=== PATIENT | male | born 1940 | race Caucasian/White ===

== ENCOUNTER 2017-05-16 00:09 | Inpatient (IN) | payer OTHER ==
[~2017-05-16] VITALS: Ht 190.5 cm; Wt 95.7 kg
--- NOTE | 2017-05-16 00:30 | NUR ---
TRIAGE: PATIENT TO ER FROM HOME REPORTING "I GOT WOKEN UP FROM A SOUND SLEEP TO PD AND EMS IN [place], I HAD LABS DONE AT [facility] TODAY AND DR. MANDUJANO TOLD ME MY LIVER AND MAYBE MY POTASSIUM OR SODIUM OR SOMETHING WAS OFF AND I NEEDED TO GO TO AN ER STAT." PATIENT DENIES ANY COMPLAINTS, DOES NOT HAVE ANY C/O CP/SOB/ABD PAIN/N/V/D.
--- NOTE | 2017-05-16 00:31 | NUR ---
SUZI SENT TO LAB FROM [facility].
[2017-05-16 00:37] LABS: ABSOLUTE BASOPHIL COUNT 0 /CUMM (0.0-0.2); ABSOLUTE EOSINOPHIL COUNT 0.4 /CUMM (0.0-0.7); ABSOLUTE GRANULOCYTE CT 4.1 /CUMM (1.4-6.5); ABSOLUTE LYMPH COUNT 1.5 /CUMM (1.2-3.4); ABSOLUTE MONOCYTE COUNT 0.8 /CUMM (0.10-0.60); BASOPHIL % 0.3 % (0.0-2.0); EOSINOPHIL % 5.7 % (0-5); GRANULOCYTE % 60.6 % (42.2-75.2); MEAN CORPUSCULAR HGB 29.5 PG (27.0-31.0); MEAN CORPUSCULAR HGB CONC 33.8 G/DL (33.0-37.0); MEAN PLATELET VOLUME 7.6 FL (7.4-10.4); PLATELET COUNT 181 /CUMM (130-400); RBC DISTRIBUTION WIDTH 12.9 % (11.5-14.5); RED BLOOD CELL CT 3.67 /CUMM (4.70-6.10); WHITE BLOOD CELL COUNT 6.7 /CUMM (4.8-10.8)
--- NOTE | 2017-05-16 00:55 | NUR ---
CRITICAL TEST RESULTS [id number] JUAN REBOLLAR 76 M TESTS AND RESULTS: K 6.0 Results received and read back by: ERICA WALDRON Results received date and time: 05/16/1754 The following provider was notified of the results, and read the results back: DR ALCANTAR Notified date and time: 05/16/17 at 0055
--- NOTE | 2017-05-16 01:30 | NUR ---
MEDICATED WITH SODIUM BICARB,INSULIN,DEXTROSE,AND CALCIUM GLUCONATE
--- NOTE | 2017-05-16 01:50 | ED GENERAL ADULT ---
History of Present Illness General Chief Complaint: General Adult Stated Complaint: SENT IN BY PMD FOR ABNORMAL BLOOD WORK "STAT" Source: patient, old records, PCP Exam Limitations: no limitations Vital Signs & Intake/Output Vital Signs & Intake/Output Vital Signs Date Time Temp Pulse Resp B/P B/P Pulse O2 O2 Flow FiO2 Mean Ox Delivery Rate 05/164 97.0 58 20 165/71 100 Room Air 05/16 0101 98.7 53 18 183/74 99 Room Air Allergies Coded Allergies: NO KNOWN ALLERGIES (05/16/17) Reconcile Medications Amlodipine Besylate (Norvasc) 10 MG TABLET 1 TAB PO DAILY HTN (Reported) Atorvastatin Calcium 20 MG TABLET 1 TAB PO DAILY CHOLESTROL (Reported) Lisinopril 10 MG TABLET 1 TAB PO DAILY HTN (Reported) Metoprolol Succinate 25 MG TAB 1 TAB PO DAILY HTN (Reported) Triage Note: TRIAGE: PATIENT TO ER FROM HOME REPORTING "I GOT WOKEN UP FROM A SOUND SLEEP TO PD AND EMS IN [place], I HAD LABS DONE AT [facility] TODAY AND DR. MANDUJANO TOLD ME MY LIVER AND MAYBE MY POTASSIUM OR SODIUM OR SOMETHING WAS OFF AND I NEEDED TO GO TO AN ER STAT." PATIENT DENIES ANY COMPLAINTS, DOES NOT HAVE ANY C/O CP/SOB/ABD PAIN/N/V/D. Triage Nurses Notes Reviewed? yes Onset: Just prior to arrival Duration: hour(s):, constant, continues in ED Timing: recent history Severity: mild No Modifying Factors: none HPI: Prior to admission patient called for routine labs with elevated potassium and creatinine. He complains of frequent urination. He denies fever chills nausea vomiting diarrhea abdominal pain chest pain shortness of breath headache dysuria rash bleeding. Past History Medical History Any Pertinent Medical History? see below for history Cardiovascular: hypertension Renal: benign prost hyperplasia Tetanus Vaccine: 06/06/12 Surgical History Surgical History: non-contributory Psychosocial History What is your primary language Tajik Family History Hx Contributory? No Review of Systems Review of Systems Constitutional: Reports: no symptoms. EENTM: Reports: no symptoms. Respiratory: Reports: no symptoms. Cardiovascular: Reports: no symptoms. GI: Reports: no symptoms. Genitourinary: Reports: see HPI, frequency. Musculoskeletal: Reports: no symptoms. Skin: Reports: no symptoms. Neurological/Psychological: Reports: no symptoms. Hematologic/Endocrine: Reports: no symptoms. Immunologic/Allergic: Reports: no symptoms. All Other Systems: Reviewed and Negative Physical Exam Physical Exam General Appearance: well developed/nourished, alert, awake, comfortable Head: atraumatic, normal appearance Eyes: Bilateral: normal appearance, PERRL, EOMI. Ears, Nose, Throat: normal pharynx, normal ENT inspection Neck: normal inspection, supple, full range of motion, no midline tenderness Respiratory: normal breath sounds, chest non-tender, no respiratory distress, quiet respiration, lungs clear Cardiovascular: regular rate/rhythm, normal peripheral pulses, norml femoral pulses equa Peripheral Pulses: 4+ carotid (R), 4+ carotid (L) Gastrointestinal: normal bowel sounds, soft, non-tender, no organomegaly Back: normal inspection, normal range of motion Extremities: normal inspection, normal capillary refill, normal range of motion, no edema Neurologic/Psych: no motor/sensory deficits, awake, alert, oriented x 3, normal gait, normal mood/affect, 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 Skin: intact, normal color, warm/dry Lymphatic: no anterior cervical harmeet Core Measures ACS in differential dx? No CVA/TIA Diagnosis: No Severe Sepsis Present: No Septic Shock Present: No Progress Differential Diagnoses I considered the following diagnoses in my evaluation of the patient: .prerenal azotemia acute renal failure Plan of Care: Orders Procedure Date/time Status CBC WITHOUT DIFFERENTIAL 05/17 0600 Active BASIC ELECTROLYTES PLUS BUN&CR 05/17 0500 Active Heart Healthy Diet 05/16 B Active EKG 05/16 0600 Active Pathway - chart 05/16 0431 Active House Staff 05/16 0431 Active Code Status 05/16 0431 Active Patient Data 05/16 0245 Active OXYGEN SETUP (GEN) 05/16 0113 Active Saline Lock 05/16 0113 Active Admit to inpatient 05/16 0113 Active Vital Signs 05/16 0113 Active Activity/Ambulation 05/16 0113 Active Code Status 05/16 0113 Complete Brooks, Insertion/Removal/Asses 05/16 0105 Active CULTURE,URINE 05/16 0105 Active URINALYSIS 05/16 0105 Active EKG 05/16 0105 Active Intake & Output 05/16 0030 Active MAGNESIUM 05/16 0023 Complete COMPREHENSIVE METABOLIC PANEL 06/16 0023 Complete CBC WITHOUT DIFFERENTIAL 05/16 23 Complete VTE Mechanical Prophylaxis 05/16 UNK Active Intake & Output 05/16 UNK Active Activity/Ambulation 05/16 UNK Active Current Medications Sig/Elizabeth Start time Last Medication Dose Stop Time Status Admin Amlodipine Besylate 10 MG DAILY 05/16 1000 UNVr (Norvasc) Atorvastatin Calcium 20 MG DAILY 05/16 1000 UNVr (Lipitor) Metoprolol Tartrate 25 MG DAILY 05/16 1000 UNVr (Lopressor) Tamsulosin HCl 0.4 MG DAILY 05/16 1000 UNVr (Flomax) Bisacodyl 5 MG ONE ONE 05/16 430 UNVr (Dulcolax) 05/16 431 Sodium Chloride 1,000 ML .[id number] 05/16 430 UNVr (Normal Saline 0.9%) Sodium Polystyrene 60 ML ONCE ONE 05/16 430 UNVr Sulfonate 05/16 431 (Kayexalate) Laboratory Tests 05/16/17 0025: Anion Gap 12, Estimated GFR 20 L, BUN/Creatinine Ratio 17.4, Glucose 88, Calcium 9.3, Magnesium 1.6, Total Bilirubin 0.3, AST 16 L, ALT 25, Alkaline Phosphatase 75, Total Protein 6.8, Albumin 4.1, Globulin 2.7, Albumin/Globulin Ratio 1.5, CBC w Diff NO MAN DIFF REQ, RBC 3.67 L, MCV 87.0, MCH 29.5, RDW 12.9 , MPV 7.6, Gran % 60.6, Lymphocytes % 22.2, Monocytes % 11.2 H, Eosinophils % 5.7 H, Basophils % 0.3, Absolute Granulocytes 4.1, Absolute Lymphocytes 1.5, Absolute Monocytes 0.8 H, Absolute Eosinophils 0.4, Absolute Basophils 0, PUBS MCHC 33.8 Microbiology 05/16 0105 URINE ROUT: Urine Culture - ORD Diagnostic Imaging: Viewed by Me: CT Scan. Discussed w/RAD: CT Scan. Radiology Impression: 1. Markedly distended urinary bladder with severe bilateral hydroureteronephrosis. Appearance is most suggestive of bladder outlet obstruction in the setting of an enlarged prostate gland. 2. Bilateral renal calculi as described above. 3. Colonic diverticulosis. Initial ED EKG: normal axis, normal intervals, normal p-waves, normal QRS complex, normal sinus rhythm, peaked t waves Rhythm Strip: normal sinus rhythm Departure Departure Disposition: STILL A PATIENT Condition: Stable Clinical Impression Primary Impression: Bladder outlet obstruction Secondary Impressions: Acute hyperkalemia, Acute renal failure Referrals: COLLINS BERRY,ASIA Morse (PCP/Family) Departure Forms: Customer Survey General Discharge Information Admission Note Spoke With: LYNETTE SALCEDO MD Documentation of Exam: Documentation of any treatments & extenuating circumstances including Concerns Regarding Discharge (functional status, medication knowledge or non-compliance, living conditions, etc.) that warrant an admission rather than observation: Urology evaluation serial lab exam cardiac monitoring medication adjustment renal evaluation continuing care discharge planning Critical Care Note Critical Care Note Critical Care Time: non-applicable
--- NOTE | 2017-05-16 02:00 | NUR ---
UNABLE TO PASS MACKEY WITH REGULAR AND COUDE CATHETERS DR ALCANTAR NOTIFIED
--- NOTE | 2017-05-16 02:30 | CT SCAN REPORT ---
EXAMINATION: CT ABDOMEN AND PELVIS WITHOUT CONTRAST CLINICAL INFORMATION: Acute renal failure COMPARISON: None TECHNIQUE: Multidetector volumetric imaging was performed from the superior aspect of the liver through the pubic symphysis. Sagittal and coronal reformatted images were obtained on the technologist's workstation. DLP: 770.51 mGy-cm FINDINGS: LUNG BASES: The visualized lung bases are unremarkable. LIVER, GALLBLADDER, AND BILIARY TREE: The liver is normal in size, shape, and attenuation. No focal hepatic lesion or biliary ductal dilatation is present. The gallbladder is contracted and not well evaluated. PANCREAS: Unremarkable. SPLEEN: Unremarkable. ADRENAL GLANDS: Unremarkable. KIDNEYS AND URETERS: There is severe, symmetric bilateral hydroureteronephrosis extending to the ureterovesicular junctions. There are right upper and lower pole renal calculi measuring up to 12 mm in length. There is a left lower pole renal calculus measuring 8 mm in length. No ureteral calculi are seen. BLADDER: Markedly distended. A few small diverticula are suspected. Nodularity along the inferior aspect of the bladder is suspected to reflect part of the enlarged prostate gland. GASTROINTESTINAL TRACT: Colonic diverticulosis is noted. The small and large bowel are otherwise unremarkable without evidence of obstruction or pericolonic inflammatory change. The appendix is unremarkable. No free fluid or free air is seen. ABDOMINAL WALL: No significant hernia is appreciated. LYMPH NODES: Normal. VASCULAR: There is atherosclerotic calcification along the aorta. PELVIC VISCERA: The prostate gland is enlarged, measuring 6.3 cm in transverse diameter. OSSEOUS STRUCTURES: Degenerative changes are noted in the spine. IMPRESSION: 1. Markedly distended urinary bladder with severe bilateral hydroureteronephrosis. Appearance is most suggestive of bladder outlet obstruction in the setting of an enlarged prostate gland. 2. Bilateral renal calculi as described above. 3. Colonic diverticulosis.
--- NOTE | 2017-05-16 03:04 | History & Physical ---
SUSIE BERRY,[facility] 05/16/17 0304: General Information and HPI MD Statement: I have seen and personally examined JUAN REBOLLAR and documented this H&P. The patient is a 76 year old M who presented with a patient stated chief complaint of [elevated potassium]. Source of Information: patient Exam Limitations: no limitations History of Present Illness: Patient is a 76-year-old male with PMH of BPH, HTN, HLD, thoracic aortic aneurysm, who is brought to the ED by the EMS as the patient was found to have abnormal lab work. Patient reports that he went to [employer] yesterday for a routine work-up before his appointment with PCP. Results showed elevated K and increased Cr, which was copied to his PCP. He tried to call the patient to infirm him of abnormal test results, the patient did not reply so the PCP sent an ambulance to take the patient to the ED. Patient denies any chest pain, palpitation, dizziness, SOB. Reports feeling tired recently with some soreness of the muscles in the upper extremity. Has had good appetite and drinks enough water. Exercises 3 miles a day. Denies constipation, diarrhea, abdominal pain. Reports 2-3 seconds of straining before urination, denies changes in the color or odor of the urine, denies frequency or urgency. Denies flank pain. Reports eating one banana daily. Patient has had a history of BPH and was seeing Dr. Romero in the past, currently not on any medications; also did biopsy which was negative. The last time he checked his kidney function he was told that it was impaired. Allergies/Medications Allergies: Coded Allergies: NO KNOWN ALLERGIES (05/16/17) Past History Medical History Cardiovascular: aortic aneurysm, hypertension, hyperlipidemia CLIENT SUPPORT REPRESENTATIVE/Reproductive: BPH, kidney stone 15 years ago Tetanus Vaccine: 06/06/12 Surgical History Surgical History: non-contributory Past Family/Social History Family History Relations & Conditions if any FATHER FH: heart disease Psychosocial History Smoking Status: Never Smoked ETOH Use: occasional use Illicit Drug Use: denies illicit drug use Functional Ability ADLs Independent: dressing, eating, toileting, bathing. Ambulation: independent Review of Systems Review of Systems Constitutional: Reports: weakness. Denies: chills, fever. EENTM: Reports: blurred vision. Cardiovascular: Denies: chest pain, palpitations, peripheral edema, syncope. Respiratory: Denies: cough, short of breath. GI: Denies: abdominal pain, changes in stool. Genitourinary: Reports: hesitation. Denies: dysuria, hematuria, urgency. Musculoskeletal: Reports: no symptoms. Skin: Reports: no symptoms. Neurological/Psychological: Reports: no symptoms. Hematologic/Endocrine: Reports: no symptoms. Exam & Diagnostic Data Last 24 Hrs of Vital Signs/I&O Vital Signs Date Time Temp Pulse Resp B/P B/P Pulse O2 O2 Flow FiO2 Mean Ox Delivery Rate 05/16 0224 97.0 58 20 165/71 100 Room Air 05/16 0101 98.7 53 18 183/74 99 Room Air Intake & Output 05/16 0800 05/16 0000 05/15 1600 Intake Total Output Total Balance Patient 95.254 kg Weight Weight Reported by Patient Measurement Method Physical Exam General Appearance Alert, Oriented X3, Cooperative, No Acute Distress Skin No Significant Lesion Skin Temp/Moisture Exam: Warm/Dry Sepsis Skin Exam (color): Normal for Ethnicity HEENT Atraumatic, EOMI, Mucous Membr. moist/pink, pupils round and reactive to light Neck Supple Cardiovascular Normal S1, Normal S2, No Murmurs, S3 sound heard on aortic and pulmonic areas Lungs Clear to Auscultation, Normal Air Movement Abdomen Soft, No Tenderness Neurological Normal Speech, Strength at 5/5 X4 Ext, Normal Tone, Sensation Intact, Cranial Nerves 3-12 NL Extremities No Edema Vascular Pulses Symmetrical Last 24 Hrs of Labs/Mal: Laboratory Tests 05/16/17 0025: Anion Gap 12, Estimated GFR 20 L, BUN/Creatinine Ratio 17.4, Glucose 88, Calcium 9.3, Magnesium 1.6, Total Bilirubin 0.3, AST 16 L, ALT 25, Alkaline Phosphatase 75, Total Protein 6.8, Albumin 4.1, Globulin 2.7, Albumin/Globulin Ratio 1.5, CBC w Diff NO MAN DIFF REQ, RBC 3.67 L, MCV 87.0, MCH 29.5, RDW 12.9 , MPV 7.6, Gran % 60.6, Lymphocytes % 22.2, Monocytes % 11.2 H, Eosinophils % 5.7 H, Basophils % 0.3, Absolute Granulocytes 4.1, Absolute Lymphocytes 1.5, Absolute Monocytes 0.8 H, Absolute Eosinophils 0.4, Absolute Basophils 0, PUBS MCHC 33.8 Microbiology 05/16 105 URINE ROUT: Urine Culture - ORD Diagnostic Data EKG Results rate 52, sinus rhythm, peaked T waves in V2-V6, WI 224. Other Results SERVICE DATE: 05/16/17 EXAM TYPE: CAT - CT ABD & PELVIS W/O IV CONTRAS EXAMINATION: CT ABDOMEN AND PELVIS WITHOUT CONTRAST CLINICAL INFORMATION: Acute renal failure COMPARISON: None TECHNIQUE: Multidetector volumetric imaging was performed from the superior aspect of the liver through the pubic symphysis. Sagittal and coronal reformatted images were obtained on the technologist's workstation. DLP: 770.51 mGy-cm FINDINGS: LUNG BASES: The visualized lung bases are unremarkable. LIVER, GALLBLADDER, AND BILIARY TREE: The liver is normal in size, shape, and attenuation. No focal hepatic lesion or biliary ductal dilatation is present. The gallbladder is contracted and not well evaluated. PANCREAS: Unremarkable. SPLEEN: Unremarkable. ADRENAL GLANDS: Unremarkable. KIDNEYS AND URETERS: There is severe, symmetric bilateral hydroureteronephrosis extending to the ureterovesicular junctions. There are right upper and lower pole renal calculi measuring up to 12 mm in length. There is a left lower pole renal calculus measuring 8 mm in length. No ureteral calculi are seen. BLADDER: Markedly distended. A few small diverticula are suspected. Nodularity along the inferior aspect of the bladder is suspected to reflect part of the enlarged prostate gland. GASTROINTESTINAL TRACT: Colonic diverticulosis is noted. The small and large bowel are otherwise unremarkable without evidence of obstruction or pericolonic inflammatory change. The appendix is unremarkable. No free fluid or free air is seen. ABDOMINAL WALL: No significant hernia is appreciated. LYMPH NODES: Normal. VASCULAR: There is atherosclerotic calcification along the aorta. PELVIC VISCERA: The prostate gland is enlarged, measuring 6.3 cm in transverse diameter. OSSEOUS STRUCTURES: Degenerative changes are noted in the spine. IMPRESSION: 1. Markedly distended urinary bladder with severe bilateral hydroureteronephrosis. Appearance is most suggestive of bladder outlet obstruction in the setting of an enlarged prostate gland. 2. Bilateral renal calculi as described above. 3. Colonic diverticulosis. 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 Problem list and plan: 1. hyperkalemia with EKG changes * Kayexalate and dulcolax and repeat K and EKG in 4 hours 2. DAKOTA, bilateral hydronephrosis most likely due to obstructive uropathy due to BPH and bilateral renal calculi * Urology consult in am * Consider starting the patient on flomax * repeat BEP in am * hold lisinopril, give norvasc if BP elevated 3. history of thoracic aortic aneurysm * asymptomatic, follow up with Dr. Dykes and gets a CT scan done every year for follow up 4. Chronic anemia * stable, added iron, ferritin, TIBC, reticulocyte count DVT px with SC heparin Heart healthy diet FC As Ranked By This Provider Problem List: 1. Acute hyperkalemia 2. Acute renal failure 3. Bladder outlet obstruction Core Measures/Miscellaneous Acute Coronary Syndrome ACS Diagnosis: No Cerebrovascular Accident CVA/TIA Diagnosis: No Congestive Heart Failure CHF Diagnosis: No VTE (View Protocol) VTE Risk Factors: Acute medical illness, Age > 40 No Mech VTE prophylaxis d/t: VTE low risk, No contraindications No VTE Pharm Prophylaxis d/t: VTE low risk, No contraindications VTE Diagnosis: No VTE Type: NONE VTE Confirmed by (Test): NONE Sepsis (View Protocol) Severe Sepsis Present: No Septic Shock Septic Shock Present: No Miscellaneous Documentation Attending Case Discussed With: LYNETTE SALCEDO MD Primary Care Physician: COLLINS BERRY,ASIA Morse Patient sees these Specialists Dr. Jania Romero Level of Patient Care: Telemetry TATI NAM 05/16/17 0456: Resident Review Statement Resident Statement: examined this patient, discussed with international trade manager, agreed with international trade manager, reviewed images, amended to note Other Findings: 76 year old gentleman with history of hypertension, hyperlipidemia, BPH previously seen by Dr. Romero (urologist) presented to [facility] ED after being sent by his primary care physician for abnormal lab work. The lab work revealed hyperkalemia and kidney injury. This likely was due to enlarged prostate gland and backup of urine leading to severe bilateral hydronephrosis, bladder outlet obstruction as suggested by the CAT scan of the abdomen. Patient admitted to urinary frequency, hesitancy, but reported normal urinary stream and no dribbling. EKG showed prolonged WI interval and peak T waves. Patient denied any chest pain, pressure or palpitations. Admit to telemetry. Insulin and calcium gluconate given in the ED. Give Kayexalate and Ducolax and repeat potassium and EKG. Start patient on tamsulosin. Urology consult for bladder outlet obstruction. Full code. Heparin for DVT prophylaxis. Heart healthy diet. LYNETTE SALCEDO 05/16/17 0515: Attending MD Review Statement Attending Statement Attending MD Statement: examined this patient, discuss w/resident/PA/BLASTING MINER, agreed w/resident/PA/BLASTING MINER, reviewed EMR data (avail), reviewed images, amended to note Attending Assessment/Plan: CC: high potassium PMH: HTN, HLD, thoracic aortic aneurysm Patient underwent routine blood work outpatient before his PCP visit and was found to have elevated potassium and creatinine. His PCP tried to reach him through phone but patient was not lifting the phone so he sent EMS to pick him up. Patient was sound asleep at that time. Patient does not have any acute complaints, no chest pain shortness of breath abdominal pain, nausea, vomiting. Patient had been having some urinary problems since last year, was prescribed Flomax which did not help him much so he stopped it. He undergoes routine CT scans for thoracic aortic aneurysm. Upon further questioning patient endorses more sleepiness and tiredness in last 1 month that was gradual in onset. He denies any dyspnea on exertion, exertional chest pain,, palpitations or presyncope. He also denies any urinary burning, pain, flank pain. Vitals: Unremarkable except blood pressure 183/74 at arrival On exam: A O 3, cooperative, no acute distress, neck supple, JVD normal, no lymphadenopathy, mucosa moist, no focal neurological deficit, +1 edema around ankle, no obvious skin rashes or inflammation CVS: S1-S2, RRR, ?diastolic murmur in Aortic area. RS: Clear to auscultate bilaterally. Abdomen: Soft, NT, ND, no suprapubic tenderness, no CVA tenderness, bowel sounds present. Labs: Hemoglobin 10.8, MCV 87, potassium 6.0, bicarbonate 20, creatinine 3.1, BUN 54, LFT unremarkable CT abdomen and pelvis: 1. Markedly distended urinary bladder with severe bilateral hydroureteronephrosis. Appearance is most suggestive of bladder outlet obstruction in the setting of an enlarged prostate gland. 2. Bilateral renal calculi as described above. 3. Colonic diverticulosis. EKG: First-degree heart block with tall T waves A and P Patient was brought in ER with abnormal labs, elevated creatinine and potassium. Patient appeared to be asymptomatic but Upon further questioning he endorses lethargy more sleepiness since last 1 month, and intermittent urinary leaking. He has EKG changes related to hyperkalemia and obvious urinary retention with bilateral hydronephrosis suggestive of bladder outlet obstruct with BPH. It should be noted that patient had CT chest in December 2016 at that time he had mild hydronephrosis: Thus appearing gradually progressed over time. Placement of Massey catheter was tried twice in ER which was unsuccessful, patient is urinating in small quantities. + Hyperkalemia + Obstructive uropathy + Bilateral hydronephrosis + Acute kidney injury + Mild metabolic acidosis + Anemia + Bladder outlet obstruction secondary to BPH - Admit to telemetry for EKG changes related to hyperkalemia with obstructive uropathy - Strict I's and O's - Kayexalate and Dulcolax by mouth - Repeat potassium and EKG in 4 hours from previous - Repeat insulin and calcium gluconate if required - Consult urology in a.m. for difficult placement of Massey with bladder outlet obstruction - Consult nephrology - Hold her lisinopril, continue rest of his home medications including amlodipine, atorvastatin, metoprolol - Adequate pain control - Iron studies, reticulocyte count - DVT prophylaxis with heparin MARLEEN PENA MD 05/17/17 0026: General Information and HPI Allergies/Medications Home Med list Amlodipine Besylate (Norvasc) 10 MG TABLET 1 TAB PO DAILY HTN (Reported) Atorvastatin Calcium 20 MG TABLET 1 TAB PO DAILY CHOLESTROL (Reported) Finasteride 5 MG TABLET 1 TAB PO DAILY PROSTATE Lisinopril 10 MG TABLET 1 TAB PO DAILY HTN (Reported) Metoprolol Succ XL (Toprol XL) 25 MG TAB 0.5 TAB PO DAILY HEART RATE CONTROL Metoprolol Succinate 25 MG TAB 1 TAB PO DAILY HTN (Reported) Tamsulosin HCl (Flomax) 0.4 MG CAP.ER.24H 1 TAB PO DAILY PROSTATE Addendum Addendum The patient was also seen today and massey placed by Dr. Romero. K and Cr decreasing. Had 4 L diuresis today and concern regarding post obstructive diuresis. Will follow output and match input with IV fluids.
--- NOTE | 2017-05-16 03:23 | NUR ---
VOIDED 360 ML BLADDER SCAN OVER 1000ML
--- NOTE | 2017-05-16 03:30 | NUR ---
DR ALCANTAR AWARE OF BLADDER SCAN WILL GET UROLOGY CONSULT IN AM
--- NOTE | 2017-05-16 04:14 | NUR ---
HOUSESTAFF WITH PT
[2017-05-16] MEDS ORDERED: LISINOPRIL10 M1 PO (04:31)
[2017-05-16] MEDS ORDERED: NORVASC10 M1 PO (04:32)
[2017-05-16] MEDS ORDERED: ATORVASTATIN CA20 M1 PO (04:32)
[2017-05-16] MEDS ORDERED: METOPROLOL SUCC25 M1 PO (04:33)
--- NOTE | 2017-05-16 05:08 | NUR ---
URINE SPECIMEN OBTAINED AND SENT TO LAB.
--- NOTE | 2017-05-16 05:17 | NUR ---
KAYEXALATE GIVEN N/S HUNG AT 75ML/HR
--- NOTE | 2017-05-16 05:17 | Admission Certification ---
Admission Certification Certification Statement - As attending physician, I certify that at the time of - admission, based on clinical presentation, severity of - symptoms, need for further diagnostic testing and - therapeutic interventions, and risk of adverse outcomes - without in-hospital treatment, in my clinical assessment, - this patient requires an acute hospital stay for a minimum - of two nights or longer. I have also considered psychsocial - factors such as support system, advanced age, financial - issues, cognitive issues, and failed out-patient treatments, - past re-admission history, safety of patient, and lack of - compliance as applicable. Specific rationale supporting this admission is: Obstructive uropathy with DAKOTA , hyperkalemia, with EKG changes
--- NOTE | 2017-05-16 05:34 | NUR ---
SMALL AMOUHT URINE ABLE TO BE OBTAINED DURING [facility] CATH INSERTION, SPECIMEN (TRIO) OBTAINED AND SENT TO LAB. PATIENT THEN NOTED W/ NO ADDITIONAL URINE OUTPUT FROM [facility]. [facility] CATH REMOVED D/T NO URINE OUTPUT W/ BLADDER SCAN REFLECTING 961ML URINE REMAINING IN BLADDER. NOTED W/ DROP OF BLOOD AT TIP OF CATH ON REMOVAL. PATIENT DENIES ANY URGE TO VOID. NO BLEEDING NOTED FROM [facility].
[2017-05-16 05:36] LABS: ABSOLUTE BASOPHIL COUNT 0 /CUMM (0.0-0.2); ABSOLUTE EOSINOPHIL COUNT 0.1 /CUMM (0.0-0.7); ABSOLUTE LYMPH COUNT 0.7 /CUMM (1.2-3.4); ABSOLUTE MONOCYTE COUNT 0.7 /CUMM (0.10-0.60); BASOPHIL % 0 % (0.0-2.0); EOSINOPHIL % 0.4 % (0-5); GRANULOCYTE % 89.3 % (42.2-75.2); HEMATOCRIT 31.8 % (42-52); MEAN CORPUSCULAR HGB 29.6 PG (27.0-31.0); MEAN CORPUSCULAR HGB CONC 33.4 G/DL (33.0-37.0); MEAN CORPUSCULAR VOLUME 88.6 FL (80.0-94.0); MEAN PLATELET VOLUME 7.7 FL (7.4-10.4); PLATELET COUNT 161 /CUMM (130-400); RBC DISTRIBUTION WIDTH 13.1 % (11.5-14.5); RED BLOOD CELL CT 3.59 /CUMM (4.70-6.10)
[2017-05-16 05:42] LABS: WHITE BLOOD CELL COUNT 13.5 /CUMM (4.8-10.8)
--- NOTE | 2017-05-16 05:43 | NUR ---
REPORT CALLED TO SHARAD RN ON ICU (PATIENT GOING TO ICU OVERFLOW).
--- NOTE | 2017-05-16 05:53 | NUR ---
PATIENT MEDICATED W/ SC HEPARIN PER EMAR. TOLERATED WELL.
--- NOTE | 2017-05-16 05:56 | NUR ---
CRITICAL TEST RESULTS [id number] JUAN REBOLLAR 76 M TESTS AND RESULTS: POTASSIUM 6.3 Results received and read back by: TAB MARI Results received date and time: 05/16/17 0556 The following provider was notified of the results, and read the results back: HOUSE STAFF PAGED Notified date and time: 05/16/17 at 0528
--- NOTE | 2017-05-16 07:02 | NUR ---
ADMITTED A 76 YEAR OLD MALE WHO WAS BROGHT IN AFTER POLICE AND AN AMBULANCE CAME TO HIS HOUSE AT [place] BECAUSE [place]. THEY WERE SENT BY HID PRIMARY PHYSICIAN AFTER HE FOUND OUT ABOUT HIS LAB RESULTS. HE ALSO HAD SOME BLADDER OBSTRUCTION. HE WAS GIVEN KAYEXALATE, NA BICARB D50, CALCIUM AND INSULIN WAS ALSO GIVEN. BLADDER SCAN SHOWED >1000, HE URINATED 360 . BLADDER SCAN 961. HE HAS A H/O BPH. REPEAT K 6.3, REPORTED TO JUSTEN HUERTA. PT VOIDED X 2 SINCE ARRIVAL IN ICU.
[2017-05-16 08:00] VITALS: BP 142/70
--- NOTE | 2017-05-16 14:18 | Cons- Urology ---
General Information and HPI Consulting Request Date of Consult: 05/16/17 Requested By: LYNETTE SALCEDO MD Reason for Consult: urinary retention: ARF: bilateral renal stones. Source of Information: patient, old records Exam Limitations: no limitations History of Present Illness: 76 year old with BPH: admitted for hyperkalemia. reports worsening BPH for months. 1800cc drained with intermittent cath-unable to place massey. Allergies/Medications Allergies: Coded Allergies: NO KNOWN ALLERGIES (05/16/17) Home Med List: Amlodipine Besylate (Norvasc) 10 MG TABLET 1 TAB PO DAILY HTN (Reported) Atorvastatin Calcium 20 MG TABLET 1 TAB PO DAILY CHOLESTROL (Reported) Lisinopril 10 MG TABLET 1 TAB PO DAILY HTN (Reported) Metoprolol Succinate 25 MG TAB 1 TAB PO DAILY HTN (Reported) Current Medications: Current Medications Sig/Elizabeth Start time Last Medication Dose Route Stop Time Status Admin Albuterol Sulfate 2 PUF Q4 05/16 0645 DC INH Amlodipine Besylate 10 MG DAILY 05/16 1000 AC 05/16 PO 0907 Atorvastatin Calcium 20 MG DAILY 05/16 1000 AC 05/16 PO 0907 Bisacodyl 5 MG ONE ONE 05/16 0430 DC 05/16 PO 05/16 0431 0544 Calcium Gluconate 0 .STK-MED ONE 05/16 0137 DC IV Calcium Gluconate 1 GM ONCE ONE 05/16 011 DC 05/16 Sodium Chloride 100 ML IV 05/16 0214 0130 Dextrose 25 GM ONCE ONE 05/16 0645 DC 05/16 IV 05/16 0646 0716 Dextrose 0 .STK-MED ONE 05/16 0138 DC IV Dextrose 25 GM ONCE ONE 05/16 0115 DC 05/16 IV 05/16 0116 0130 Finasteride 5 MG DAILY 05/16 1000 AC 05/16 PO 0907 Heparin Sodium 5,000 UNIT Q8 05/16 0600 AC 05/16 (Porcine) SC 0553 Heparin Sodium 0 .STK-MED ONE 05/16 0519 DC (Porcine) .ROUTE Insulin Human Regular 6 UNITS ONCE ONE 05/16 0645 DC 05/16 SC 05/16 0646 0716 Insulin Human Regular 10 UNITS ONCE ONE 05/16 0115 DC 05/16 IV 05/16 0116 0130 Magnesium Oxide 400 MG BID 05/16 1000 AC 05/16 PO 0907 Metoprolol Succinate 25 MG DAILY 05/16 1000 AC 05/16 PO 0907 Sodium Bicarbonate 0 .STK-MED ONE 05/16 0138 DC IV Sodium Bicarbonate 50 MEQ ONCE ONE 05/16 0115 DC 05/16 IV 05/16 0116 0130 Sodium Chloride 1,000 ML .[id number] 05/16 0430 DC 05/16 IV 0515 Sodium Polystyrene 0 .STK-MED ONE 05/16 0519 DC Sulfonate .ROUTE Sodium Polystyrene 0 .STK-MED ONE 05/16 0509 DC Sulfonate .ROUTE Sodium Polystyrene 60 ML ONCE ONE 05/16 0430 DC 05/16 Sulfonate PO 05/16 0431 0515 Tamsulosin HCl 0.4 MG DAILY 05/16 1000 AC 05/16 PO 0907 Past History Medical History Blood Transfusion Hx: No Neurological: NONE EENT: NONE Cardiovascular: aortic aneurysm, hypertension, hyperlipidemia Respiratory: NONE Gastrointestinal: NONE Hepatic: NONE Renal: benign prost hyperplasia, nephrolithiasis Musculoskeletal: NONE Psychiatric: NONE Endocrine: NONE Blood Disorders: NONE Cancer(s): NONE [employer]/Reproductive: BPH, kidney stone 15 years ago Surgical History Pertinent Surgical History: non-contributory Family History Relations & Conditions If Any: FATHER FH: heart disease Psychosocial History Where Do You Live? Home Smoking Status: Never Smoked ETOH Use: occasional use Illicit Drug Use: denies illicit drug use Functional Ability ADLs Independent: dressing, eating, toileting, bathing. Ambulation: independent Employment History Employment: Unemployed Retired? yes Review of Systems Review of Systems Constitutional: Denies: no symptoms. EENTM: Denies: no symptoms. Cardiovascular: Denies: no symptoms. Respiratory: Denies: no symptoms. GI: Denies: no symptoms. Genitourinary: Reports: frequency (retentioin), hesitation. Musculoskeletal: Denies: no symptoms. Skin: Denies: no symptoms. Exam & Diagnostic Data Vital Signs and I&O Vital Signs Date Time Temp Pulse Resp B/P B/P Pulse O2 O2 Flow FiO2 Mean Ox Delivery Rate 05/16 0907 53 142/70 05/16 0907 53 142/70 05/16 0907 53 142/70 05/16 0800 98.3 57 18 142/70 97 Room Air 05/16 0655 Room Air 05/16 0544 96.1 50 18 175/77 100 Room Air 05/16 0300 100 Room Air 05/16 0224 97.0 58 20 165/71 100 Room Air 05/16 0101 98.7 53 18 183/74 99 Room Air Intake & Output 05/16 1600 05/16 0800 05/16 0000 05/15 1600 05/15 0800 05/15 0000 Intake Total 320 Output Total 2100 Balance -1780 Intake, Oral 320 Number 1 1 Bowel Movements Output, Urine 2100 Patient 211 lb Weight Weight Bed scale Measurement Method Physical Exam General Appearance: well developed/nourished, no apparent distress, alert, awake Head: atraumatic Eyes: Bilateral: normal appearance. Neck: normal inspection Respiratory: normal breath sounds Cardiovascular: regular rate/rhythm Gastrointestinal: normal bowel sounds Back: no vertebral tenderness Extremities: normal inspection Skin: intact Reproductive: Normal male genitalia Last 24 Hours of Labs: Laboratory Tests 05/16 05/16 1155 0517 Chemistry Sodium (137 - 145 mmol/L) 143 140 Potassium (3.5 - 5.1 mmol/L) 5.5 H 6.3 *H Chloride (98 - 107 mmol/L) 111 H 111 H Carbon Dioxide (22 - 30 mmol/L) 21 L 18 L Anion Gap (5 - 16) 12 11 BUN (9 - 20 mg/dL) 46 H 53 H Creatinine (0.7 - 1.2 mg/dL) 2.7 H 2.9 H Estimated GFR (>60 ml/min) 23 L 21 L BUN/Creatinine Ratio (7 - 25 %) 17.0 18.3 Iron (49 - 181 ug/dL) 61 TIBC (261 - 462 ug/dL) 283 Ferritin (17.9 - 464 ng/mL) 189.0 Hematology CBC w Diff NO MAN DIFF REQ WBC (4.8 - 10.8 /CUMM) 13.5 H RBC (4.70 - 6.10 /CUMM) 3.59 L Hgb (14.0 - 18.0 G/DL) 10.6 L Hct (42 - 52 %) 31.8 L MCV (80.0 - 94.0 FL) 88.6 MCH (27.0 - 31.0 PG) 29.6 RDW (11.5 - 14.5 %) 13.1 Plt Count (130 - 400 /CUMM) 161 MPV (7.4 - 10.4 FL) 7.7 Gran % (42.2 - 75.2 %) 89.3 H Lymphocytes % (20.5 - 51.1 %) 4.9 L Monocytes % (1.7 - 9.3 %) 5.4 Eosinophils % (0 - 5 %) 0.4 Basophils % (0.0 - 2.0 %) 0 L Absolute Granulocytes (1.4 - 6.5 /CUMM) 12.0 H Absolute Lymphocytes (1.2 - 3.4 /CUMM) 0.7 L Absolute Monocytes (0.10 - 0.60 /CUMM) 0.7 H Absolute Eosinophils (0.0 - 0.7 /CUMM) 0.1 Absolute Basophils (0.0 - 0.2 /CUMM) 0 PUBS MCHC (33.0 - 37.0 G/DL) 33.4 Retic Count (0.5 - 2.0 %) 1.08 16 05/16 0504 0025 Chemistry Sodium (137 - 145 mmol/L) 141 Potassium (3.5 - 5.1 mmol/L) 6.0 *H Chloride (98 - 107 mmol/L) 109 H Carbon Dioxide (22 - 30 mmol/L) 20 L Anion Gap (5 - 16) 12 BUN (9 - 20 mg/dL) 54 H Creatinine (0.7 - 1.2 mg/dL) 3.1 H Estimated GFR (>60 ml/min) 20 L BUN/Creatinine Ratio (7 - 25 %) 17.4 Glucose (65 - 99 mg/dL) 88 Calcium (8.4 - 10.2 mg/dL) 9.3 Magnesium (1.6 - 2.3 mg/dL) 1.6 Total Bilirubin (0.2 - 1.3 mg/dL) 0.3 AST (17 - 59 U/L) 16 L ALT (21 - 72 U/L) 25 Alkaline Phosphatase (< 127 U/L) 75 Total Protein (6.3 - 8.2 g/dL) 6.8 Albumin (3.5 - 5.0 g/dL) 4.1 Globulin (1.9 - 4.2 gm/dL) 2.7 Albumin/Globulin Ratio (1.1 - 2.2 %) 1.5 Hematology CBC w Diff NO MAN DIFF REQ WBC (4.8 - 10.8 /CUMM) 6.7 RBC (4.70 - 6.10 /CUMM) 3.67 L Hgb (14.0 - 18.0 G/DL) 10.8 L Hct (42 - 52 %) 32.0 L MCV (80.0 - 94.0 FL) 87.0 MCH (27.0 - 31.0 PG) 29.5 RDW (11.5 - 14.5 %) 12.9 Plt Count (130 - 400 /CUMM) 181 MPV (7.4 - 10.4 FL) 7.6 Gran % (42.2 - 75.2 %) 60.6 Lymphocytes % (20.5 - 51.1 %) 22.2 Monocytes % (1.7 - 9.3 %) 11.2 H Eosinophils % (0 - 5 %) 5.7 H Basophils % (0.0 - 2.0 %) 0.3 Absolute Granulocytes (1.4 - 6.5 /CUMM) 4.1 Absolute Lymphocytes (1.2 - 3.4 /CUMM) 1.5 Absolute Monocytes (0.10 - 0.60 /CUMM) 0.8 H Absolute Eosinophils (0.0 - 0.7 /CUMM) 0.4 Absolute Basophils (0.0 - 0.2 /CUMM) 0 PUBS MCHC (33.0 - 37.0 G/DL) 33.8 Urines Urine Color (YEL,AMB,STR) YEL Urine Clarity (CLEAR) CLEAR Urine pH (5.0 - 8.0) 6.0 Ur Specific [place] (1.001 - 1.035) 1.010 Urine Protein (NEG,<30 MG/DL) NEG Urine Ketones (NEG) NEG Urine Nitrite (NEG) NEG Urine Bilirubin (NEG) NEG Urine Urobilinogen (0.1 - 1.0 EU/dl) 0.2 Ur Leukocyte Esterase (NEG) NEG Ur Microscopic EXAM NOT REQUIRED Urine Hemoglobin (NEG) NEG Urine Glucose (N MG/DL) NEG Imaging Results: PATIENT: JUAN REBOLLAR PRESENT AGE: 76 PATIENT ACCOUNT NO: [id number] : 40 LOCATION: [facility] ORDERING PHYSICIAN: PERLA ALCANTAR MD SERVICE DATE: 05/16/17 EXAM TYPE: CAT - CT ABD & PELVIS W/O IV CONTRAS EXAMINATION: CT ABDOMEN AND PELVIS WITHOUT CONTRAST CLINICAL INFORMATION: Acute renal failure COMPARISON: None TECHNIQUE: Multidetector volumetric imaging was performed from the superior aspect of the liver through the pubic symphysis. Sagittal and coronal reformatted images were obtained on the technologist's workstation. DLP: 770.51 mGy-cm FINDINGS: LUNG BASES: The visualized lung bases are unremarkable. LIVER, GALLBLADDER, AND BILIARY TREE: The liver is normal in size, shape, and attenuation. No focal hepatic lesion or biliary ductal dilatation is present. The gallbladder is contracted and not well evaluated. PANCREAS: Unremarkable. SPLEEN: Unremarkable. ADRENAL GLANDS: Unremarkable. KIDNEYS AND URETERS: There is severe, symmetric bilateral hydroureteronephrosis extending to the ureterovesicular junctions. There are right upper and lower pole renal calculi measuring up to 12 mm in length. There is a left lower pole renal calculus measuring 8 mm in length. No ureteral calculi are seen. BLADDER: Markedly distended. A few small diverticula are suspected. Nodularity along the inferior aspect of the bladder is suspected to reflect part of the enlarged prostate gland. GASTROINTESTINAL TRACT: Colonic diverticulosis is noted. The small and large bowel are otherwise unremarkable without evidence of obstruction or pericolonic inflammatory change. The appendix is unremarkable. No free fluid or free air is seen. ABDOMINAL WALL: No significant hernia is appreciated. LYMPH NODES: Normal. VASCULAR: There is atherosclerotic calcification along the aorta. PELVIC VISCERA: The prostate gland is enlarged, measuring 6.3 cm in transverse diameter. OSSEOUS STRUCTURES: Degenerative changes are noted in the spine. IMPRESSION: 1. Markedly distended urinary bladder with severe bilateral hydroureteronephrosis. Appearance is most suggestive of bladder outlet obstruction in the setting of an enlarged prostate gland. 2. Bilateral renal calculi as described above. 3. Colonic diverticulosis. Assessment/Plan Assessment/Plan urianry retention: massey placed with >1000cc drained: start flomax and proscar: f/u in office at 9am on sunday 05/20 if pt discharged with leg bag over weekend. Copies To: RADHA WASHBURN MD Consult Acknowledgment - Thank you for your consult request. Attending MD Review Statement Attending Statement Attending Statement: examined this patient, discuss w/resident/PA/TIPPLE REPAIRER Attending Assessment/Plan: retention: massey placed: pt on flomax and proscar: if discharged over weekend- send home with massey and f/u in office on friday05/19/17 at 9am
[2017-05-16 16:00] VITALS: BP 128/64
--- NOTE | 2017-05-16 19:00 | NUR ---
7AM-7PM SHIFT NOTE- RECEIVED PT @ 0700-A&OX3, LUNGS CTAB ON RA 97%, SINUS BRADYCARDIA/BORDERLINE 1ST DEGREE HB 57-62 ON HELPER COORDINATOR. MANUAL BP 142/70. PO MEDS GIVEN PER EMAR. DENIES CHEST PAIN. INDEPENDENT TO TOILET W/MIN ASSISTANCE FOR IV POLE. MOVED BOWELS IN TOILET X2. URINATED 100ML X2 VOIDS IN URINAL. BLADDER SCAN SHOWED >999 @ 0800. ATTEMPTED MACKEY INSERTION W/12 BHUTANESE & 12 BHUTANESE CAUDE CATHETERS & UNABLE TO ADVANCE BOTH W/ATTEMPT ABORTED. DR ORO & DR COTTON NOTIFIED. UROLOGY DR WASHBURN NOTIFIED. PT REMAINS ASYMPTOMATIC W/NO C/O PAIN OR DISCOMFORT, HOWEVER ABDOMEN APPEARS DISTENDED. NO PAIN WITH PALPATION OF BLADDER. ALPS INTACT TO BLE. SKIN INTACT. NS @ 75ML/HR DISCONTINUED AT THIS TIME PER DR ORO UNTIL MACKEY ESTABLISHED OR PT VOIDS ADEQUATE AMOUNT. @0900-PT RECEIVED PO MEDS INCLUDING NEW ORDERS PROSCAR & FLOMAX PER EMAR. @1000-PT VOIDED 125ML OR URINE IN URINAL ONLY. AT THIS TIME ATTEMPTED STRAIGHT CATHETER INSERTION WITH SUCCESS & WITHOUT DIFFICULTY. OBTAINED 1875ML OF CLEAR YELLOW URINE. DR ORO NOTIFIED. @1400-DR WASHBURN IN TO ASSESS PT. HE PLACED A 16 BHUTANESE CAUDE CATHETER WITH 1 LITER CLEAR YELLOW URINE WITH A FEW SMALL CLOTS NOTED IN TUBING. PT ENCOURAGED TO DRINK WATER. PER DR WASHBURN-MACKEY TO REMAIN IN PLACE UNTIL FRIDAY WHETHER IN OR OUTPATIENT, IF HE IS DISCHARGED HOME-CHANGE TO A LEG BAG. HE IS TO FOLLOWUP IN HIS OFFICE FRIDAY AT [address] WASHBURN. @1800-URINE IN MACKEY NOTED TO BE HEMATURIC WITH STRINGY CLOTS & PINK IN COLOR & 850ML OBTAINED. DR ORO NOTIFIED & NS @ 75ML/HR REORDERED TO START @ THIS TIME & REPEAT BEP FOR 1999. PATIENT CONTINUES TO DENY PAIN OR DISCOMFORT. REPORT GIVEN TO ONCOMING NURSE.
[2017-05-16] MEDS ORDERED: FLOMAX0.4 M1 PO (20:14)
[2017-05-16] MEDS ORDERED: TOPROL XL25 M1 PO (20:14)
[2017-05-16] MEDS ORDERED: FINASTERIDE5 M1 PO (20:14)
--- NOTE | 2017-05-16 20:29 | Patient Discharge Instructions ---
Discharge Instructions General Discharge Information You were seen/treated for: hyperkalemia Special Instructions: please follow up with your PCP with in a week of discharge. Please follow up with urologist / Dr Romero in office at 9am on sunday 05/20 after discharge. Please recheck your blood work for kidney next week as provided. please continue to take the new medications as prescribed. Diet Continue normal diet: No Recommended Diet: low pottasium diet Acute Coronary Syndrome Inclusion Criteria At DC or during hospital stay patient has or had the following: ACS DIAGNOSIS No Discharge Core Measures Meds if any: Prescribed or Continued at Discharge Meds if any: NOT Prescribed or Continued at Discharge Congestive Heart Failure Inclusion Criteria At DC or during hospital stay patient has or had the following: CHF DIAGNOSIS No Discharge Core Measures Meds if any: Prescribed or Continued at Discharge Meds if any: NOT Prescribed or Continued at Discharge Cerebrovascular accident Inclusion Criteria At DC or during hospital stay patient has or had the following: CVA/TIA Diagnosis No Discharge Core Measures Meds if any: Prescribed or Continued at Discharge Meds if any: NOT Prescribed or Continued at Discharge Venous thromboembolism Inclusion Criteria VTE Diagnosis No VTE Type NONE VTE Confirmed by (Test) NONE Discharge Core Measures - Per Current guidelines, there needs to be overlap - treatment for the first 5 days of Warfarin therapy. - If discharged on Warfarin prior to 5 days of - overlap therapy, the patient will need to be - assessed for post discharge needs including - *Post discharge parental anticoagulation - *Warfarin and/or parental anticoagulation education - *Follow up date to check INR post discharge At least 5 days overlap therapy as Inpatient No Meds if any: Prescribed or Continued at Discharge Note: Overlap Therapy is Warfarin and Anticoagulant Meds if any: NOT Prescribed or Continued at Discharge
[2017-05-16 23:00] VITALS: BP 144/92
--- NOTE | 2017-05-17 01:59 | NUR ---
PATIENT IS A/O X 3, MOVES ALL THE EXTREMITIES, FOLLOWS COMMANDS, ABLE TO WALK TO THE BATHROOM, DENIES ANY PAIN. AFEBRILE, VITALS SIGNS ARE STABLE, HR AT 60'S, SYSTOLIC BP IS AT 130'S TO 140'S, RR ON 20'S WITH GOOD OXYGEN SATURATION. BREATHING SPONTANEOUSLY ON R/A, LUNGS IS CLEAR. ABDOMEN IS SOFT, GOOD BOWEL SOUNDS, WENT TO THE BATHROOM FOR BOWEL MOVEMENT, LIGHT YELLOW LOSOE STOOL NOTED MODERATE AMOUNT. PATIENT RECEIVED WITH CAUDE CATHETER, DRAINING WITH BLOODY URINE OUTPUT( HEMATURIA ). SKIN IS INTACT. AT 1930. MD ON DUTY INFORMED THAT URINE OUTPUT REMAIN HEMATURIC, MD CAME INTO THE BEDSIDE AND SEEN THE PATIENT. NO FURTHER ORDER.
[2017-05-17 05:28] LABS: ABSOLUTE BASOPHIL COUNT 0 /CUMM (0.0-0.2); ABSOLUTE EOSINOPHIL COUNT 0.3 /CUMM (0.0-0.7); ABSOLUTE GRANULOCYTE CT 5.2 /CUMM (1.4-6.5); ABSOLUTE LYMPH COUNT 1.3 /CUMM (1.2-3.4); ABSOLUTE MONOCYTE COUNT 0.7 /CUMM (0.10-0.60); BASOPHIL % 0.4 % (0.0-2.0); EOSINOPHIL % 4.6 % (0-5); GRANULOCYTE % 68.7 % (42.2-75.2); HEMATOCRIT 31.7 % (42-52); MEAN CORPUSCULAR HGB 29.8 PG (27.0-31.0); MEAN CORPUSCULAR HGB CONC 33.7 G/DL (33.0-37.0); MEAN CORPUSCULAR VOLUME 88.4 FL (80.0-94.0); PLATELET COUNT 160 /CUMM (130-400); RBC DISTRIBUTION WIDTH 13.5 % (11.5-14.5); RED BLOOD CELL CT 3.59 /CUMM (4.70-6.10); WHITE BLOOD CELL COUNT 7.6 /CUMM (4.8-10.8)
--- NOTE | 2017-05-17 06:42 | NUR ---
ROUTINE MORNING LAB RESULT RELAYED TO MD ON DUTY. POTASSIUM REMAIN AT 5.5 AND LATEST MAGNESIUM IS 1.4 ORAL KAYAXELATE 60M ML GIVEN EMAR. MAGNESIUM IS REPLETED WITH 2 GRAMS MG IV, FISRT BAG IS IN PROGRESS.
[2017-05-17 07:00] VITALS: BP 134/59
[2017-05-17 08:00] VITALS: BP 140/62
--- NOTE | 2017-05-17 10:03 | NUR ---
PER DR. YURY FRYE TO GIVE METOPROLO TAMSULIN AND AMLODIPINE WITH HEART RATE OF 53
--- NOTE | 2017-05-17 10:27 | PN- Housestaff ---
JEVON COTTON 05/17/17 1026: Subjective Follow-up For: DAKOTA urinary obstruction due to BPH Subjective: I have seen and examined the patient, he is feeling better today. still bloody urine but clearing out. Vs are stable Review of Systems Constitutional: Reports: see HPI. Objective Last 24 Hrs of Vital Signs/I&O Vital Signs Date Time Temp Pulse Resp B/P B/P Pulse O2 O2 Flow FiO2 Mean Ox Delivery Rate 05/17 1007 53 140/62 05/17 1007 53 140/62 05/17 1007 53 140/62 05/17 0700 97.5 72 24 134/59 97 Nasal 2.0L Cannula 05/17 0000 95 Room Air 05/16 2300 98.3 65 22 144/92 95 Room Air 05/16 1600 98.8 57 18 128/64 97 Room Air Intake & Output 05/17 1600 05/17 0800 05/17 0000 Intake Total 1580 1895 Output Total 1150 2210 Balance 430 -315 Intake, IV 620 575 Intake, Oral 960 1320 Number 2 Bowel Movements Output, Urine 1150 2210 Physical Exam General Appearance: Alert, Oriented X3, Cooperative, No Acute Distress Cardiovascular: Regular Rate, Normal S1, Normal S2 Lungs: Clear to Auscultation, Normal Air Movement Abdomen: Normal Bowel Sounds, Soft, No Tenderness Extremities: No Clubbing, No Edema Current Medications: Current Medications Sig/Elizabeth Start time Last Medication Dose Route Stop Time Status Admin Amlodipine Besylate 10 MG DAILY 05/16 1000 AC 05/17 PO 1007 Atorvastatin Calcium 20 MG DAILY 05/16 1000 AC 05/17 PO 1007 Finasteride 5 MG DAILY 05/16 1000 AC 05/17 PO 1006 Heparin Sodium 5,000 UNIT Q8 05/16 0600 DC 05/16 (Porcine) SC 1418 Magnesium Oxide 400 MG BID 05/17 1000 CAN PO 05/18 2201 Magnesium Oxide 400 MG BID 05/16 1000 AC 05/17 PO 1007 Magnesium Sulfate 1 GM Q2H 05/17 0630 DC 05/17 Dextrose/Water 100 ML IV 05/17 1029 0840 Metoprolol Succinate 12.5 MG DAILY 05/17 1000 AC 05/17 PO 1007 Metoprolol Succinate 25 MG DAILY 05/16 1000 DC 05/16 PO 0907 Sodium Chloride 1,000 ML .[id number] 05/16 1800 AC 05/17 IV 0625 Sodium Polystyrene 60 ML ONCE ONE 05/17 0615 DC 05/17 Sulfonate PO 05/17 0616 0625 Sodium Polystyrene 60 ML ONCE ONE 05/16 2045 DC 05/16 Sulfonate PO 05/16 Tamsulosin HCl 0.4 MG DAILY 05/16 1000 AC 05/17 PO 1007 Last 24 Hrs of Lab/Mal Results Last 24 Hrs of Labs/Mics: Laboratory Tests 05/17/17 0400: Anion Gap 12, Estimated GFR 25 L, Glucose 82, Calcium 9.0, Phosphorus 4.2, Magnesium 1.4 L, Total Bilirubin 0.5, AST 15 L, ALT 31, Albumin 3.6, CBC w Diff NO MAN DIFF REQ, RBC 3.59 L, MCV 88.4, MCH 29.8, RDW 13.5, MPV 8.0, Gran % 68.7, Lymphocytes % 16.9 L, Monocytes % 9.4 H, Eosinophils % 4.6, Basophils % 0.4, Absolute Granulocytes 5.2, Absolute Lymphocytes 1.3, Absolute Monocytes 0.7 H, Absolute Eosinophils 0.3, Absolute Basophils 0, PUBS MCHC 33.7 05/16/17 1945: Anion Gap 9, Estimated GFR 25 L, BUN/Creatinine Ratio 18.4 05/16/17 1155: Anion Gap 12, Estimated GFR 23 L, BUN/Creatinine Ratio 17.0 Assessment/Plan Assessment: 76 year-old man with past medical history of BPH,thoracic aortic aneurysm, hypertension was admitted to the hospital with the chief complaint of elevated potassium and urinary obstructions due to BPH. Patient underwent routine blood work outpatient before his PCP visit and was found to patient endorses more sleepiness and tiredness in last 1 month that was gradual in onset. He denies any dyspnea on exertion, exertional chest pain, palpitations or presyncope. He also denies any urinary burning, pain, flank pain. Vitals: Unremarkable except blood pressure 183/74 at arrival On exam: A O 3, cooperative, no acute distress, neck supple, JVD normal, no lymphadenopathy, mucosa moist, no focal neurological deficit, +1 edema around ankle, no obvious skin rashes or inflammation CVS: S1-S2, RRR, ?diastolic murmur in Aortic area. RS: Clear to auscultate bilaterally. Abdomen: Soft, NT, ND, no suprapubic tenderness, no CVA tenderness, bowel sounds present. Labs: Hemoglobin 10.8, MCV 87, potassium 6.0, bicarbonate 20, creatinine 3.1, BUN 54, LFT unremarkable CT abdomen and pelvis: 1. Markedly distended urinary bladder with severe bilateral hydroureteronephrosis. Appearance is most suggestive of bladder outlet obstruction in the setting of an enlarged prostate gland. 2. Bilateral renal calculi as described above. 3. Colonic diverticulosis. EKG: First-degree heart block with tall T waves Assessment and plan #Urinary outlet obstruction resulting in acute kidney injury and hyperkalemia -massey is placed with good urine output -We will follow urology notes -Hematuria is improving -Continue IV fluids NS 75/h for at least 1 more day -Today's potassium was 5.5, to be checked tomorrow, Kayexalate was given today -DAKOTA is also improving with hydration and removal of the obstruction - Hold lisinopril, continue rest of his home medications including amlodipine, atorvastatin, metoprolol #Anemia -normal Iron studies, we will monitor Full code, DVT prophylaxis is mechanical,heart healthy diet Problem List: 1. Acute renal failure 2. Bladder outlet obstruction 3. Acute hyperkalemia Pain Ratin Pain Location: no pain Pain Goal: Remain pain free Pain Plan: same Tomorrow's Labs & Rationales: CBC BEP JESSI BERRY,[facility] 05/17/17 1612: Attending MD Review Statement Attending Statement Attending MD Statement: examined this patient, discuss w/resident/PA/COMMERCIAL COUNSEL, agreed w/resident/PA/COMMERCIAL COUNSEL, reviewed EMR data (avail), discussed with case mgmt, reviewed images, amended to note Attending Assessment/Plan: 76-year-old male with past medical history significant for hypertension, BPH, has been admitted with a TIA and hyperkalemia and is currently being placed in the ICU as a deli hold. CT showed bilateral hydronephrosis likely secondary to BPH. Patient has been followed by the urologist who placed the Foleys catheter to relieve the obstruction. Relieving obstruction, his potassium and creatinine improved but had post obstructive Diuril assess which seems to have been improved now. Patient has also been started on tamsulosin and finasteride. And was seen and examined on the bedside this morning and did not complain of any active issues or pain and reports that his hematuria seems to have been cleared. His vitals seem stable and his lab work is noted which shows still elevated potassium and creatinine but stable on 5.5 and 2.5. Well keep the patient today and will recheck his potassium and creatinine tomorrow. As per Urologist patient can be discharged with a follow-up in his office on Friday. Off note, his blood pressure seems to be in the upper range of normal as lisinopril is on hold for his elevated creatinine. Due to hold lisinopril and it is okay to continue with the rest of his blood pressure medications.
[2017-05-17 16:00] VITALS: BP 150/68
[2017-05-17 20:00] VITALS: BP 138/62
[2017-05-17 23:57] VITALS: BP 136/60
[2017-05-18 08:08] VITALS: BP 140/70
[2017-05-18 08:29] LABS: ABSOLUTE BASOPHIL COUNT 0 /CUMM (0.0-0.2); ABSOLUTE EOSINOPHIL COUNT 0.4 /CUMM (0.0-0.7); ABSOLUTE GRANULOCYTE CT 6.1 /CUMM (1.4-6.5); ABSOLUTE MONOCYTE COUNT 0.9 /CUMM (0.10-0.60); BASOPHIL % 0.3 % (0.0-2.0); EOSINOPHIL % 4.3 % (0-5); GRANULOCYTE % 73.3 % (42.2-75.2); HEMATOCRIT 31.4 % (42-52); MEAN CORPUSCULAR HGB 29.5 PG (27.0-31.0); MEAN CORPUSCULAR HGB CONC 33.8 G/DL (33.0-37.0); MEAN CORPUSCULAR VOLUME 87.5 FL (80.0-94.0); MEAN PLATELET VOLUME 8.1 FL (7.4-10.4); PLATELET COUNT 154 /CUMM (130-400); RBC DISTRIBUTION WIDTH 13.2 % (11.5-14.5); RED BLOOD CELL CT 3.59 /CUMM (4.70-6.10); WHITE BLOOD CELL COUNT 8.3 /CUMM (4.8-10.8)
[2017-05-18 09:01] VITALS: BP 140/70
[2017-05-18] MEDS ORDERED: FINASTERIDE5 M1 PO (10:27)
[2017-05-18] MEDS ORDERED: FLOMAX0.4 M1 PO (11:00)
[2017-05-18] MEDS ORDERED: TOPROL XL25 M1 PO (11:00)
--- NOTE | 2017-05-18 11:14 | PN- Att Addend ---
Attending Addendum Attending Brief Note 76-year-old male with past medical history significant for hypertension, BPH, has been admitted with a TIA and hyperkalemia and is currently being placed in the ICU as a deli hold. CT showed bilateral hydronephrosis likely secondary to BPH. Patient has been followed by the urologist who placed the Foleys catheter to relieve the obstruction. Relieving obstruction, his potassium and creatinine improved but had post obstructive Diuril assess which seems to have been improved now. Patient has also been started on tamsulosin and finasteride. And was seen and examined on the bedside this morning and did not complain of any active issues or pain and reports that his hematuria seems to have been cleared. His vitals seem stable and his lab work is noted which shows imprvement in K to 5.2 and Cr down to 2.0. Clear urine in his bag. As per Urologist patient can be discharged with a follow-up in his office on Friday. Since the patient is stable, we will discharge the patient and will continue to hold off of lisinopril due to elevated Cr which could be restarted back once his kidney fucntions are completely back to normal. Will continue with the rest of his blood pressure medications. Pt will follow up with the urologist tomorrow morning at 9 am.
== END 2017-05-18 11:55 | DRG 683 ==
LOC: ERH 00:09 → CRI 01:13 → ERHI 01:13 → 1NO 01:13 → ENRESERV 05:05 → CRI 06:07 → 1NO 05-17 19:54 → ENPENDDIS 05-18 09:13 → 1NO 05-18 09:17
PROVIDERS: Emergency Medicine; Internal Medicine; ADMIT Internal Medicine
DX: N17.9 Acute kidney failure, unspecified (principal); E87.2 Acidosis; E87.5 Hyperkalemia; I71.2 Thoracic aortic aneurysm, without rupture; N13.8 Other obstructive and reflux uropathy; N40.1 Benign prostatic hyperplasia with lower urinary tract symptoms; R33.8 Other retention of urine; I10 Essential (primary) hypertension; E78.5 Hyperlipidemia, unspecified; N13.2 Hydronephrosis with renal and ureteral calculous obstruction; K57.90 Diverticulosis of intestine, part unspecified, without perforation or abscess without bleeding
CPT/HCPCS: 1NSP; CCU; 36415; 74176; 81003; 82436; 87086; 93005; 93010; 96372; 96374; 96375; J0610; J1644; J1815; J3490

== ENCOUNTER 2017-05-21 22:11 | Inpatient (IN) | payer OTHER ==
[~2017-05-21] VITALS: Ht 190.5 cm; Wt 93.4 kg
[~2017-05-21 22:11] MED LIST: ATORVASTATIN CA20 M1 PO; FINASTERIDE5 M1 PO; FLOMAX0.4 M1 PO; LISINOPRIL10 M1 PO; METOPROLOL SUCC25 M1 PO; NORVASC10 M1 PO; TOPROL XL25 M1 PO
--- NOTE | 2017-05-21 22:21 | NUR ---
PER PT ?SEPTIC, TOLD BY DR WASHBURN TO COME FOR ADMISSION, DISCHARGED FRIDAY SP UTI, NOW SHAKY, FEVER DONT FEEL WELL, HAS LIDODERM PATCH ON BACK LAST TYLENOL 5 PM TEMP 99.9 IN TRIAGE SHIVERING NI TRIAGE
--- NOTE | 2017-05-21 22:44 | ED GI/GU/ABDOMINAL COMPLAINT ---
History of Present Illness General Chief Complaint: Male Genitourinary Problems Stated Complaint: SENT BY DR. ROMERO FOR INFECTION, JUST D/C'ED SUN Source: patient Exam Limitations: no limitations Vital Signs & Intake/Output Vital Signs & Intake/Output Vital Signs Date Time Temp Pulse Resp B/P B/P Pulse O2 O2 Flow FiO2 Mean Ox Delivery Rate 05/21 2222 99.9 105 28 186/75 95 ED Intake and Output 05/22 0000 05/21 1200 Intake Total 0 Output Total Balance 0 Intake, Oral 0 Patient 210 lb Weight Allergies Coded Allergies: NO KNOWN ALLERGIES (05/16/17) Reconcile Medications Acetaminophen (Pain Reliever) 500 MG CAPSULE 2 CAP PO PRN PAIN (Reported) Amlodipine Besylate (Norvasc) 10 MG TABLET 1 TAB PO DAILY HTN (Reported) Atorvastatin Calcium 20 MG TABLET 1 TAB PO DAILY CHOLESTROL (Reported) Finasteride 5 MG TABLET 1 TAB PO DAILY PROSTATE Metoprolol Succ XL (Toprol XL) 25 MG TAB 0.5 TAB PO DAILY HEART RATE CONTROL Tamsulosin HCl (Flomax) 0.4 MG CAP.ER.24H 1 TAB PO DAILY PROSTATE Triage Note: PER PT ?SEPTIC, TOLD BY DR ROMERO TO COME FOR ADMISSION, DISCHARGED FRIDAY SP UTI, NOW SHAKY, FEVER DONT FEEL WELL, HAS LIDODERM PATCH ON BACK LAST TYLENOL 5 PM TEMP 99.9 IN TRIAGE Triage Nurses Notes Reviewed? yes Onset: Gradual Duration: hour(s): Timing: recent history Quality/Severity: burning Location: generalized abdomen Radiation: no radiation Activities at Onset: none Prior Abdominal Problems: none Associated Symptoms: dysuria, rigors HPI: 76 yo gentleman presents with fever, rigors, increased weakness. Per the patient, he was seen by Dr. Romero this evening, "Who told me to come to the Emergency Room because he said I had a urine infection." He notes feeling warm, weak, but without dyspnea, chest pain, shortness of breath. He is otherwise well. Past History Travel History Traveled to [place] past 21 day No Medical History Any Pertinent Medical History? see below for history Neurological: NONE EENT: NONE Cardiovascular: aortic aneurysm, hypertension, hyperlipidemia Respiratory: NONE Gastrointestinal: NONE Hepatic: NONE Renal: benign prost hyperplasia, nephrolithiasis Musculoskeletal: NONE Psychiatric: NONE Endocrine: NONE Blood Disorders: NONE Cancer(s): NONE MULE PACKER/Reproductive: BPH, kidney stone 15 years ago History of MRSA: No History of VRE: No History of CDIFF: No Tetanus Vaccine: 06/06/12 Surgical History Surgical History: non-contributory Psychosocial History Who do you live with Patient/Self What is your primary language Hungarian Tobacco Use: Never used Family History Family History, If Any: FATHER FH: heart disease Hx Contributory? No Review of Systems Review of Systems Constitutional: Reports: no symptoms. EENTM: Reports: no symptoms. Respiratory: Reports: no symptoms. Cardiovascular: Reports: no symptoms. GI: Reports: no symptoms. Genitourinary: Reports: no symptoms. Musculoskeletal: Reports: no symptoms. Skin: Reports: no symptoms. Neurological/Psychological: Reports: no symptoms. Hematologic/Endocrine: Reports: no symptoms. Immunologic/Allergic: Reports: no symptoms. All Other Systems: Reviewed and Negative Physical Exam Physical Exam General Appearance: well developed/nourished, mild distress Head: atraumatic, normal appearance Eyes: Bilateral: normal appearance, PERRL, EOMI. Ears, Nose, Throat, Mouth: hearing grossly normal Neck: normal inspection, supple, full range of motion Respiratory: normal breath sounds, chest non-tender, no respiratory distress, quiet respiration, lungs clear Cardiovascular: regular rate/rhythm Gastrointestinal: normal bowel sounds, soft, non-tender, no organomegaly Back: normal inspection Extremities: normal range of motion Neurologic/Psych: no motor/sensory deficits, awake, alert, oriented x 3 Skin: intact, normal color, warm/dry Core Measures ACS in differential dx? No Severe Sepsis Present: No Septic Shock Present: No Progress Differential Diagnosis: pancreatitis, prostatitis, pyelonephritis, ureterolithiasis, urinary retention, UTI/pyelo Plan of Care: Orders Procedure Date/time Status Nothing by Mouth 05/22 B Active LACTIC ACID 05/22 0157 Active Saline Lock 05/22 0048 Active Misc Message 05/22 0048 Active ED Holding Orders 05/22 0048 Active Admit to inpatient 05/22 0048 Active Vital Signs 05/22 0048 Active Code Status 05/22 0048 Active BLOOD CULTURE 05/21 2300 Active EKG 05/21 2259 Active BLOOD CULTURE 05/21 2257 Active LACTIC ACID 05/21 225 Complete CULTURE,URINE 05/21 2216 Active URINALYSIS 05/21 2216 Complete COMPREHENSIVE METABOLIC PANEL 05/21 2216 Complete CBC WITHOUT DIFFERENTIAL 05/21 2216 Complete Laboratory Tests 05/21/17 2304: Lactic Acid 1.8 05/21/17 230: Anion Gap 13, Estimated GFR 25 L, BUN/Creatinine Ratio 14.0, Glucose 145 H, Calcium 9.3, Total Bilirubin 1.0, AST 15 L, ALT 21, Alkaline Phosphatase 71, Total Protein 6.8, Albumin 3.9, Globulin 2.9, Albumin/Globulin Ratio 1.3, CBC w Diff NO MAN DIFF REQ, RBC 3.71 L, MCV 88.2, MCH 29.6, RDW 13.2, MPV 7.4, Gran % 93.2 H, Lymphocytes % 2.3 L, Monocytes % 4.5, Eosinophils % 0, Basophils % 0 L, Absolute Granulocytes 13.5 H, Absolute Lymphocytes 0.3 L, Absolute Monocytes 0.6, Absolute Eosinophils 0, Absolute Basophils 0, PUBS MCHC 33.6 05/21/172224: Urinalysis LIGHT H, Urine Color YEL, Urine Clarity CLDY H, Urine pH 6.0, Ur Specific [place] 1.015, Urine Protein 100 H, Urine Ketones NEG, Urine Nitrite POS H, Urine Bilirubin NEG, Urine Urobilinogen 0.2, Ur Leukocyte Esterase LARGE H, Ur Microscopic SEDIMENT EXAMINED, Urine RBC 50-75 H, Urine WBC PACKD H, Ur Epithelial Cells FEW, Urine Bacteria PACKD H, Urine Mucus FEW, Urine Hemoglobin LARGE H, Urine Glucose NEG Microbiology 05/21 2341 BLOOD: Blood Culture - RECD 05/21 2304 BLOOD: Blood Culture - RECD 05/21 2225 URINE ROUT: Urine Culture - RECD Diagnostic Imaging: Viewed by Me: Radiology Read. Discussed w/RAD: Radiology Read. CXR Impression: no acute abnormality, no infiltrates, normal size heart, normal mediastinum Initial ED EKG: normal axis, normal intervals, normal p-waves, normal QRS complex, normal sinus rhythm, sinus tachycardia Departure Departure Disposition: STILL A PATIENT Condition: Stable Clinical Impression Primary Impression: UTI (urinary tract infection) Secondary Impressions: Renal failure, Sepsis Referrals: COLLINS BERRY,ASIA Morse (PCP/Family) Departure Forms: Customer Survey General Discharge Information Admission Note Spoke With: ALYCIA JOHNSON MD Documentation of Exam: Documentation of any treatments & extenuating circumstances including Concerns Regarding Discharge (functional status, medication knowledge or non-compliance, living conditions, etc.) that warrant an admission rather than observation: pt with worsening renal failure, tachycardia, leukocytosis, merits iv abx, correction of renal failure, urology consult in AM. Critical Care Note Critical Care Note Critical Care Time: 30-74 min
[2017-05-21] MEDS ORDERED: PAIN RELIEVER500 MG PO (23:05)
--- NOTE | 2017-05-21 23:09 | NUR ---
URINE SAMPLE SENT TO LAB BLOOD DRAWN AND SENT TO LAB SST BLUE COVARRUBIAS LAV
[2017-05-21 23:15] LABS: ABSOLUTE BASOPHIL COUNT 0 /CUMM (0.0-0.2); ABSOLUTE EOSINOPHIL COUNT 0 /CUMM (0.0-0.7); ABSOLUTE GRANULOCYTE CT 13.5 /CUMM (1.4-6.5); ABSOLUTE LYMPH COUNT 0.3 /CUMM (1.2-3.4); ABSOLUTE MONOCYTE COUNT 0.6 /CUMM (0.10-0.60); BASOPHIL % 0 % (0.0-2.0); EOSINOPHIL % 0 % (0-5); HEMATOCRIT 32.8 % (42-52); MEAN CORPUSCULAR HGB 29.6 PG (27.0-31.0); MEAN CORPUSCULAR HGB CONC 33.6 G/DL (33.0-37.0); MEAN CORPUSCULAR VOLUME 88.2 FL (80.0-94.0); MEAN PLATELET VOLUME 7.4 FL (7.4-10.4); PLATELET COUNT 152 /CUMM (130-400); RBC DISTRIBUTION WIDTH 13.2 % (11.5-14.5); RED BLOOD CELL CT 3.71 /CUMM (4.70-6.10)
[2017-05-21 23:16] LABS: WHITE BLOOD CELL COUNT 14.5 /CUMM (4.8-10.8)
--- NOTE | 2017-05-21 23:25 | RADIOLOGY REPORT ---
EXAMINATION: XR PORTABLE CHEST CLINICAL INFORMATION: Fever COMPARISON: 12/09/2016 TECHNIQUE: Portable frontal view of the chest was obtained. FINDINGS: The lungs are clear with no focal consolidation. No evidence of pneumothorax, pulmonary edema, or pleural effusions. Cardiac size is within normal limits. Calcification is present at the aortic arch. No acute osseous findings are seen. IMPRESSION: No acute cardiopulmonary findings.
[2017-05-21 23:27] LABS: GRANULOCYTE % 93.2 % (42.2-75.2)
--- NOTE | 2017-05-21 23:41 | NUR ---
SET2 OF BLOOD CULTURES SENT TO LAB.
--- NOTE | 2017-05-21 23:51 | NUR ---
PT MEDICATED WITH ROCEPHIN PER EMAR.
--- NOTE | 2017-05-22 01:30 | NUR ---
PT APPEARS DIAPHORETIC. PT DENIES ANY DISTRESS AT THIS TIME. TEMP. 97.4 COLE BRANDT NOTIFIED.
--- NOTE | 2017-05-22 01:48 | NUR ---
REPEAT LACTIC AND BLUE TOP TUBE SENT TO LAB.
--- NOTE | 2017-05-22 01:55 | NUR ---
REPORT GIVEN TO TEMO RIBEIRO ON [facility]. [facility] WILL COME DOWN TO ASSIST WITH TRANSPORT. BED IS READY.
--- NOTE | 2017-05-22 01:56 | NUR ---
PT BED ASSIGNMENT 215-1
--- NOTE | 2017-05-22 02:27 | History & Physical ---
JARED BERRY,[facility] 05/22/17 0226: General Information and HPI MD Statement: I have seen and personally examined JUAN POP and documented this H&P. The patient is a 76 year old M who presented with a patient stated chief complaint of [Chills]. Source of Information: patient, family, old records Exam Limitations: no limitations History of Present Illness: Mr. Pop is 76-year-old male with past medical history significant for BPH, HTN, HLD, thoracic aortic aneurysm recent discharge on 05/18/17 after he was admitted for hyperkalemia and obstructive uropathy. Patient presented to ED with chief complaint of chills. Patient was discharged on Friday05/18/17 after he was treated for hyperkalemia and obestructive uropathy with indwelling Massey catheter that was removed on Friday05/19/[address] Romero. Patient reported that since discharge he has been feeling fatigued and had multiple chills, abdominal fullness due to inability to empty bladder, visited that Dr. Romero today and was found to have urinary retention by bladder scan, fever of 103, patient was advised to go to ED for evaluation. Patient reported fever, chills, dry heaves no vomiting, poor appetite, constipation. He denied dysuria, hematuria, urinary frequency or hesitancy, abdominal pain or flank pain, shortness of breath, cough, chest pain, dizziness or lightheadedness.. Patient reported history of BPH, status post multiple prostate biopsy with negative results, kidney stones status post lithotripsy. No history of recurrent UTI. Allergies/Medications Allergies: Coded Allergies: NO KNOWN ALLERGIES (05/16/17) Home Med list Acetaminophen (Pain Reliever) 500 MG CAPSULE 2 CAP PO PRN PAIN (Reported) Amlodipine Besylate (Norvasc) 10 MG TABLET 1 TAB PO DAILY HTN (Reported) Atorvastatin Calcium 20 MG TABLET 1 TAB PO DAILY CHOLESTROL (Reported) Finasteride 5 MG TABLET 1 TAB PO DAILY PROSTATE Metoprolol Succ XL (Toprol XL) 25 MG TAB 0.5 TAB PO DAILY HEART RATE CONTROL Tamsulosin HCl (Flomax) 0.4 MG CAP.ER.24H 1 TAB PO DAILY PROSTATE Past History Travel History Traveled to [place] past 21 day No Medical History Neurological: NONE EENT: NONE Cardiovascular: aortic aneurysm, hypertension, hyperlipidemia Respiratory: NONE Gastrointestinal: NONE Hepatic: NONE Renal: benign prost hyperplasia, nephrolithiasis Musculoskeletal: NONE Psychiatric: NONE Endocrine: NONE Blood Disorders: NONE Cancer(s): NONE 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 Home Who Do You Live With? self Primary Language: Nepalese ETOH Use: denies use Illicit Drug Use: denies illicit drug use Functional Ability ADLs Independent: dressing, eating, toileting, bathing. Ambulation: independent Review of Systems Review of Systems Constitutional: Reports: see HPI. Exam & Diagnostic Data Last 24 Hrs of Vital Signs/I&O Vital Signs Date Time Temp Pulse Resp B/P B/P Pulse O2 O2 Flow FiO2 Mean Ox Delivery Rate 05/22 0303 98.0 80 20 128/60 97 Room Air 05/22 0121 97.4 74 18 116/54 95 Room Air 05/21 2222 99.9 105 28 186/75 95 Intake & Output 05/22 0800 05/22 0000 05/21 1600 Intake Total 0 Output Total 1100 Balance -1100 0 Intake, Oral 0 Output, Urine 1100 Patient 93.44 kg 95.254 kg Weight Weight Reported by Patient Measurement Method Physical Exam General Appearance Alert, Oriented X3, Cooperative, No Acute Distress Skin No Rashes, No Breakdown, No Significant Lesion Skin Temp/Moisture Exam: Warm/Dry Sepsis Skin Exam (color): Normal for Ethnicity HEENT Atraumatic, PERRLA, EOMI, Mucous Membr. moist/pink Neck Supple, No JVD Lymphatic no cervical lymphadenopathy Cardiovascular Regular Rate, Normal S1, Normal S2, No Murmurs Lungs Clear to Auscultation, Normal Air Movement Abdomen Normal Bowel Sounds, Soft, No Tenderness, No Hepatospenomegaly, No Masses Neurological Normal Speech, Strength at 5/5 X4 Ext, Normal Tone, Sensation Intact, Cranial Nerves 3-12 NL, Reflexes 2+ Extremities No Clubbing, No Cyanosis, No Edema, Normal Pulses, No Tenderness/ Swelling Last 24 Hrs of Labs/Mal: Laboratory Tests 05/22/17 0146: Lactic Acid 0.8 05/21/17 2304: Lactic Acid 1.8 05/21/172303: Anion Gap 13, Estimated GFR 25 L, BUN/Creatinine Ratio 14.0, Glucose 145 H, Calcium 9.3, Total Bilirubin 1.0, AST 15 L, ALT 21, Alkaline Phosphatase 71, Total Protein 6.8, Albumin 3.9, Globulin 2.9, Albumin/Globulin Ratio 1.3, CBC w Diff NO MAN DIFF REQ, RBC 3.71 L, MCV 88.2, MCH 29.6, RDW 13.2, MPV 7.4, Gran % 93.2 H, Lymphocytes % 2.3 L, Monocytes % 4.5, Eosinophils % 0, Basophils % 0 L, Absolute Granulocytes 13.5 H, Absolute Lymphocytes 0.3 L, Absolute Monocytes 0.6, Absolute Eosinophils 0, Absolute Basophils 0, PUBS MCHC 33.6 05/21/172224: Urinalysis LIGHT H, Urine Color YEL, Urine Clarity CLDY H, Urine pH 6.0, Ur Specific [place] 1.015, Urine Protein 100 H, Urine Ketones NEG, Urine Nitrite POS H, Urine Bilirubin NEG, Urine Urobilinogen 0.2, Ur Leukocyte Esterase LARGE H, Ur Microscopic SEDIMENT EXAMINED, Urine RBC 50-75 H, Urine WBC PACKD H, Ur Epithelial Cells FEW, Urine Bacteria PACKD H, Urine Mucus FEW, Urine Hemoglobin LARGE H, Urine Glucose NEG Microbiology 05/21 2341 BLOOD: Blood Culture - RECD 05/21 2304 BLOOD: Blood Culture - RECD 05/21 2225 URINE ROUT: Urine Culture - RECD Diagnostic Data EKG Results EKG sinus tachycardia, rate 104, QTC 432 CXR Results IMPRESSION: No acute cardiopulmonary findings. Assessment/Plan Assessment: Mr. Pop is 76-year-old male with past medical history significant for BPH, HTN, HLD, thoracic aortic aneurysm recent discharge on 05/18/17 after he was admitted for hyperkalemia and obstructive uropathy. Patient presented to ED with chief complaint of chills since discharge on Friday05/18/17 after he was treated for hyperkalemia and obestructive uropathy with indwelling Massey catheter that was removed on Friday05/19/[address] Romero. Patient had a sick visit to Dr. Romero's clinic today and was asked to go to ED for evaluation. On admission Vital signs 99.9, pulse 105, blood pressure 186/75, respiratory 28 saturating 95 % on room air Labs WBC 14.5, H&H 11/32.8, platelet 152, sodium 137, potassium 4.6, BUN/creatinine 35/2.5, glucose 145, lactic acid 1.8, UA positive nitrate, leukocyte esterase, packed WBC Problem list #Sepsis of urologic origin #UTI #Acute kidney injury #BPH #Hypertension, hyperlipidemia Plan -Admit to general medical floor -Start ceftriaxone IV -Urine culture, blood culture (patient didn't have any growth in previous urine culture, previous UA 05/16 negative) -Patient didn't have any abdominal or pelvic tenderness on physical exam, will defer imaging for now -Place Massey catheter (patient had difficulty placing massey last admission, was placed by Dr. Rmoero) please try once and if unsuccessful start straight cath protocol with BladderScan -Urology consultation in a.m. -Gentle IV fluid -Continue home medication amlodipine 10 mg, atorvastatin 20 mg, finasteride 5 mg , metoprolol 12.5 mg, Flomax 0.4 mg -Code full -DVT prophylaxis heparin subcutaneous -Diet heart healthy As Ranked By This Provider Problem List: 1. Acute renal failure 2. Bladder outlet obstruction 3. UTI (urinary tract infection) 4. Sepsis Core Measures/Miscellaneous Acute Coronary Syndrome ACS Diagnosis: No Cerebrovascular Accident CVA/TIA Diagnosis: No Congestive Heart Failure CHF Diagnosis: No VTE (View Protocol) VTE Risk Factors: Age > 40 No [facility] VTE prophylaxis d/t: No contraindications No VTE Pharm Prophylaxis d/t: No contraindications VTE Diagnosis: No VTE Type: NONE VTE Confirmed by (Test): NONE Sepsis (View Protocol) Severe Sepsis Present: No Septic Shock Septic Shock Present: No Miscellaneous Documentation Attending Case Discussed With: ELIZABETH BERRY,ALYCIA Primary Care Physician: COLLINS BERRY,ASIA Morse Patient sees these Specialists 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 He endorses a feeling of incomplete emptying but dysnies dysuria, frequency, juni hematuria, or foul smelling urine. Patient says symptoms have been going on for the past 3 days since he was discharged home after being treated here in [facility] for obstructive uropathy and acute kidney injury with Creat of 3.1. His UA was found to be clean at that time except for hematuria. His abdomino-pelvic CT showed markedly distended urinary bladder with severe bilateral hydroureteronephrosis. Appearance is most suggestive of bladder outlet obstruction in the setting of an enlarged prostate gland with bilateral renal calculi and colonic diverticulosis. A massey was placed by Dr. Romero during admission and was taken out 3 days ago when patient followed up with him as an outpatient. he was started on Proscar and Flomax during that admission. Vitals stable WBC 14.5, H&H 11&32.8, BUN 35, Cret 2.5, Gluc 145 Exam WNL Assessment 1. Sepsis of urological origin 2. Urinary tract infection 3. Acute kidney injury 2/2 post-obstructive uropathy 4. HTN, HLD 5. BPH Plan Admit to [facility] IVF hydration with Normal Saline Place massey to relieve obstruction Urology consult to Dr. Romero in AM Urine Culture Blood Culture x 2 Start IV ceftriaxone 1g daily Restart his home medication; including proscar and flomax Repeat labs in am Pain pathway ordered Heart Healthy diet SC heparin for DVT ppx FC ELIZABETH BERRY, [facility] 05/22/17 0330: Attending MD Review Statement Attending Statement Attending MD Statement: examined this patient, discuss w/resident/PA/FIRE MANAGEMENT OFFICER, agreed w/resident/PA/FIRE MANAGEMENT OFFICER, discussed with family Attending Assessment/Plan: 76 yo M with h/o HTN, HLD, thoracic AA, nephrolithiasis s/p lithotripsy, BPH s/p biopsy (benign), was discharged on May 16 after being treated for [place], hyperkalemia and obstructive uropathy 2/2 BPH for which Massey was placed c/b post obstructive diuresis. He followed up with Dr. Romero on FridayMay 19, massey was removed and he was given a void trial. Over the past 2 days, he has noticed chills, fatigue, abdominal fullness and a feeling of incomplete voiding. He saw Dr. Romero yesterday. Noted to have a temp of 103, urinary retention on bladder scan, UA drawn by straight cath was positive for UTI. He was sent to ER for eval. He denies dysuria, frequency or hematuria. Vitals: Tmax 99.9, tachycardic 105, BP 128/60. Exam: AAO, diaphoretic, dry mucous membranes, otherwise unremarkable exam. No CVA tenderness. Labs: WBC 14.5 , bicarb 19, BUN 35, creat 2.5 (baseline 1.0-1.1, recently had increased to 3.1 -->2.5 -->2.0), lactic acid 1.8, UA nitrite positive, large LE, WBC packed, RBC 50-75, packed bacteria. EKG: Sinus tachycardia, PVC's, Qtc 432. CXR neg. CT abd/ pelvis (05/16/17): severe b/l hydroureteronephrosis, enlarged prostate gland, b/ l renal calculi. 1. Sepsis, UTI, obstructive uropathy (2/2 BPH and renal calculi) with worsening renal failure. GM admit, panculture, IV ceftriaxone, IV fluids, trend lactic acid and renal functions, Massey placed by RN with 1100 cc UO, strict I/O's, continue flomax and finasteride. Urology consult (Dr. Romero) ?possible need for intervention. We have not repeated any imaging at this point. 2. HTN. Lisinopril was discontinued during last admission. Continue amlodipine and metoprolol. DVT ppx Hep SC. Full code.
[2017-05-22 03:03] VITALS: BP 128/60
--- NOTE | 2017-05-22 03:31 | Admission Certification ---
Admission Certification Certification Statement - As attending physician, I certify that at the time of - admission, based on clinical presentation, severity of - symptoms, need for further diagnostic testing and - therapeutic interventions, and risk of adverse outcomes - without in-hospital treatment, in my clinical assessment, - this patient requires an acute hospital stay for a minimum - of two nights or longer. I have also considered psychsocial - factors such as support system, advanced age, financial - issues, cognitive issues, and failed out-patient treatments, - past re-admission history, safety of patient, and lack of - compliance as applicable. Specific rationale supporting this admission is: Sepsis, UTI, obstructive uropathy.
--- NOTE | 2017-05-22 05:02 | NUR ---
NURSE NOTE:CAME TO FLOOR FROM ED, REPORT RECIEVED FROM ANG. PT AAOX3, IVF. VSS. MACKEY CATH INSERTED AT THIS TIME. PT DENIES PAIN. BED LOW, CALL MISTRY IN REACH.
[2017-05-22 06:20] VITALS: BP 130/72
--- NOTE | 2017-05-22 07:52 | Patient Discharge Instructions ---
Discharge Instructions General Discharge Information You were seen/treated for: UTI Watch for these problems: If you feel weak, experience chest pain, shortness breath, worsening cough or increased weakness please come back to the emergency department. Other signs to watch out for include: fever, chills, nausea and vomiting. Special Instructions: Please follow-up with your primary care physician within 7 days of discharge. Please inform your primary care physician of this admission to the hospital. Please follow up with the urologist, we have provided you with a referral. Diet Continue normal diet: Yes Activity Activity Self Limited: Yes (As Tolerated) Acute Coronary Syndrome Inclusion Criteria At DC or during hospital stay patient has or had the following: ACS DIAGNOSIS No Discharge Core Measures Meds if any: Prescribed or Continued at Discharge Meds if any: NOT Prescribed or Continued at Discharge Congestive Heart Failure Inclusion Criteria At DC or during hospital stay patient has or had the following: CHF DIAGNOSIS No Discharge Core Measures Meds if any: Prescribed or Continued at Discharge Meds if any: NOT Prescribed or Continued at Discharge Cerebrovascular accident Inclusion Criteria At DC or during hospital stay patient has or had the following: CVA/TIA Diagnosis No Discharge Core Measures Meds if any: Prescribed or Continued at Discharge Meds if any: NOT Prescribed or Continued at Discharge Venous thromboembolism Inclusion Criteria VTE Diagnosis No VTE Type NONE VTE Confirmed by (Test) NONE Discharge Core Measures - Per Current guidelines, there needs to be overlap - treatment for the first 5 days of Warfarin therapy. - If discharged on Warfarin prior to 5 days of - overlap therapy, the patient will need to be - assessed for post discharge needs including - *Post discharge parental anticoagulation - *Warfarin and/or parental anticoagulation education - *Follow up date to check INR post discharge At least 5 days overlap therapy as Inpatient No Meds if any: Prescribed or Continued at Discharge Note: Overlap Therapy is Warfarin and Anticoagulant Meds if any: NOT Prescribed or Continued at Discharge
[2017-05-22 07:53] LABS: ABSOLUTE BASOPHIL COUNT 0 /CUMM (0.0-0.2); ABSOLUTE EOSINOPHIL COUNT 0 /CUMM (0.0-0.7); ABSOLUTE GRANULOCYTE CT 15.9 /CUMM (1.4-6.5); ABSOLUTE LYMPH COUNT 0.4 /CUMM (1.2-3.4); ABSOLUTE MONOCYTE COUNT 1.3 /CUMM (0.10-0.60); BASOPHIL % 0 % (0.0-2.0); EOSINOPHIL % 0 % (0-5); GRANULOCYTE % 90.3 % (42.2-75.2); HEMATOCRIT 29.7 % (42-52); MEAN CORPUSCULAR HGB CONC 34.2 G/DL (33.0-37.0); MEAN CORPUSCULAR VOLUME 87.7 FL (80.0-94.0); MEAN PLATELET VOLUME 8.2 FL (7.4-10.4); PLATELET COUNT 133 /CUMM (130-400); RBC DISTRIBUTION WIDTH 13.2 % (11.5-14.5); RED BLOOD CELL CT 3.39 /CUMM (4.70-6.10); WHITE BLOOD CELL COUNT 17.6 /CUMM (4.8-10.8)
--- NOTE | 2017-05-22 07:57 | Discharge Summary ---
See Addendum Visit Information Visit Dates Admission Date: 05/22/17 Discharge Date: 05/23/2017 Hospital Course Course Attending Physician: Dr Jose Humphries Primary Care Physician: COLLINS BERRY,ASIA Morse Hospital Course: Mr. Pop is 76-year-old male with past medical history significant for BPH, HTN, HLD, thoracic aortic aneurysm who was recently discharged from [facility] on 05/18/17 after he was treated for DAKOTA, hyperkalemia and obstructive uropathy (2/2 to BPH). Patient presented back to the ED on 05/22/2017 with chief complaint of chills. Patient sates that he was last seen at the office of Dr Romero on Friday05/19/2017, and over the last two days prior to admission he noticed chills, abdominal fullness and fatigued. Prior to coming in he had seen Dr Romero and after being found to have a temperature of 103 deg F, he was instructed to come to the ED. Vital signs at the time of admission: 99.9, pulse 105, blood pressure 186/75, respiratory 28 saturating 95% on room air Labs WBC 14.5, H&H 11/32.8, BUN/creatinine 35/2.5, glucose 145, lactic acid 1.8, UA positive nitrate, leukocyte esterase, packed WBC He was admitted to the general medical service and below is a summary of the care he received under us. . Problem list #SIRS, secondary to UTI due to urinary stasis #UTI #Acute kidney injury #BPH #Hypertension, hyperlipidemia #SIRS, secondary to UTI due to urinary stasis The patient was started on IV Ceftriaxone. He was also started on IV fluids. On the afternoon of day one of admission, the patient was kept NPO and taken for a cystoscopy with Dr Romero. He tolerated this procedure well (see attached report ). Once he returned his diet was advanced as tolerated. On day two of admssion, after cultures and sensitivities were available, we prescribed oral antibiotics for a total of 13 days of coverage. The patient was discharged with a massey and given instructions to arrange an outpatient visit with Dr Romero. #Headache The patient did endorse a headache. He was given Tylenol which he responded well to. #Chronic Conditions. The patient was continued on the following medications throughout his admission: Amlodipine 10 mg, Atorvastatin 20 mg, Finasteride 5 mg, Metoprolol 12.5 mg, Flomax 0.4 mg #Code Full Code. Allergies: Coded Allergies: NO KNOWN ALLERGIES (05/16/17) Pertinent Lab Results: EXAM TYPE: RAD - XRY-PORTABLE CHEST XRAY EXAMINATION: XR PORTABLE CHEST CLINICAL INFORMATION: Fever COMPARISON: 12/09/2016 TECHNIQUE: Portable frontal view of the chest was obtained. FINDINGS: The lungs are clear with no focal consolidation. No evidence of pneumothorax, pulmonary edema, or pleural effusions. Cardiac size is within normal limits. Calcification is present at the aortic arch. No acute osseous findings are seen. IMPRESSION: No acute cardiopulmonary findings. Name of Procedure: Cystoscopy Pre-Operative Diagnosis: Hematuria, BPH with retention Post-Operative Diagnosis: Same Estimated Blood Loss: scant Surgeon/Digital Ad Trafficker: MD ROMERO ARNOLD-UROLOGY Anesthesia: moderate sedation Drains: 18 Setswana Massey Complications: None Operative/Procedure Note Note: The patient was taken to the operative room and placed on the OR table in supine position. Timeout was performed in order to confirm the patient's identity, procedure, anesthesia, antibiotics, as well as any other pertinent information. After adequate anesthesia, and antibiotics, the patient was then placed lithotomy stirrups draped and prepped in the usual surgical fashion. A 22 Setswana cystoscope sheath with a 30 angle lens was inserted into the urethra and advanced into the bladder without difficulty. The prostate was noted to be approximately 3.5 cm in length, with bilateral lobe hyperplasia. Small middle lobe. The bladder was noted to have the findings as discussed above. The bladder was then hydrodistended 2 with the irrigation fluid at 40 cm above the symphysis pubis. No evidence of tumor, increased petechiae, nor Hunner's ulceration was noted. Both ureteral orifices had clear reflux in their orthotopic position. No terminal bleed with drainage. Bladder capacity was normal. The bladder was then drained and the cystoscope was removed under direct visualization. The patient tolerated procedure well and was taken to recovery room in satisfactory condition. DICTATED BY: RADHA ROMERO MD Disposition Summary Disposition Principal Diagnosis: SIRS, secondary to UTI due to urinary stasis Additional Diagnosis: History of HTN Discharge Disposition: home or self care Discharge Instructions General Discharge Information Code Status: Full Code Patient's Diet: Heart Healthy Patient's Activity: As Tolerated Follow-Up Instructions/Appts: Please follow-up with your primary care physician within 7 days of discharge. Please inform your primary care physician of this admission to the hospital. Please follow up with the urologist, Dr Romero, we have provided you with a referral. Medications at Discharge Discharge Medications: Continue taking these medications: Amlodipine Besylate (Norvasc) 10 MG TABLET 1 Tablet ORAL DAILY Comments: Last Taken: 05/23/17 Time: 9:30 AM Atorvastatin Calcium (Atorvastatin Calcium) 20 MG TABLET 1 Tablet ORAL DAILY Comments: Last Taken: 05/23/17 Time: 4:00 PM Finasteride (Finasteride) 5 MG TABLET 1 Tablet ORAL DAILY Qty = 60 Comments: Last Taken: 05/23/17 Time: 9:30 AM Tamsulosin HCl (Flomax) 0.4 MG CAP.ER.24H 1 Tablet ORAL DAILY Qty = 60 Comments: Last Taken: 05/23/17 Time: 9:30 AM Metoprolol Succ XL (Toprol XL) 25 MG TAB 0.5 Tablet ORAL DAILY Qty = 60 Comments: Last Taken: 05/23/17 Time: 9:30 AM Acetaminophen (Pain Reliever) 500 MG CAPSULE 2 Capsule ORAL as needed for PAIN Comments: Last Taken: 05/23/17 Time: 4:00 PM Start taking the following new medications: Amoxicillin/Potassium Clav (Augmentin 875-125 Tablet) 875 MG-125 MG TABLET 1 Tablet ORAL TWICE DAILY Qty = 22 No Refills Instructions: . Comments: NOT GIVEN IN HOSPITAL Copies To: COLLINS BERRY,ASIA Morse; RADHA ROMERO MD
--- NOTE | 2017-05-22 08:23 | PN- Student ---
Subjective Subjective: Pt is a 76 yo white male non-smoker with history of BPH, nephrolithiasis status post lithotripsy, hypertension, hyperlipidemia, and thoracic aortic aneurism recently discharged from the hospital on 05/18/17 for obstructive uropathy and hyperkalemia who presents with chills, fatigue, abdominal discomfort, and decreased urinary volume. He states that his chills and fatigue have been getting worse since he was discharged from the hospital on Friday. On Friday he went to see Dr. Romero to get his massey catheter removed and was found to have urinary retention on bladder scan and a fever of 103 so he was sent to the ED. Other than some mild abdominal discomfort and dry heaves the pt denies any other associated symptoms. He did not notice any hematuria, itchiness, fever, confusion, increased frequency or urgency. He notes decreased urinary stream but states that it is not much different than his baseline. See HPI. Denies headache, fever, confusion, palpitations, chest pain, shortness of breath, nausea, vomitting, changes in bowel movements, muscle aches, or joint pains. Objective Objective: Intake & Output 05/22 0800 05/22 0000 Intake Total 640 0 Output Total 1999 Balance -1360 0 Intake, IV 400 Intake, Oral 240 0 Output, Urine 1999 Patient 206 lb 210 lb Weight Weight Reported by Patient Measurement Method Current Medications Sig/Elizabeth Start time Last Medication Dose Route Stop Time Status Admin Acetaminophen 650 MG Q6P PRN 05/22 0200 AC PO Acetaminophen 1,000 MG Q6P PRN 05/22 0200 AC IV Amlodipine Besylate 10 MG DAILY 05/22 1000 AC PO Atorvastatin Calcium 20 MG 1700 05/22 1700 AC PO Ceftriaxone Sodium 1,000 MG DAILY 05/22 1000 AC IV Finasteride 5 MG DAILY 05/22 1000 AC PO Heparin Sodium 5,000 UNIT Q8 05/22 0600 AC 05/22 (Porcine) SC 0615 Metoprolol Succinate 12.5 MG DAILY 05/22 1000 AC PO Morphine Sulfate 2 MG Q4P PRN 05/22 020 AC IV Sodium Chloride 1,000 ML SEE RATE 05/22 0200 AC 05/22 IV 0310 Tamsulosin HCl 0.4 MG DAILY 05/22 1000 AC PO Vital Signs Date Time Temp Pulse Resp B/P B/P Pulse O2 O2 Flow FiO2 Mean Ox Delivery Rate 06/22 0620 98.0 67 20 130/72 97 Room Air 05/22 0303 98.0 80 20 128/60 97 Room Air 05/22 0121 97.4 74 18 116/54 95 Room Air 05/21 2222 99.9 105 28 186/75 95 Physical Exam General: ill-appearing in mild distress, lying in bed Head: NCAT Neck: supple, no carotid bruits Eyes: EOMI, no conjunctival pallor Cardio: normal s1s2, no mrg, rrr Pulm: cta bl, normal air movement Abd: no ttp, no hepatosplenomegaly, no rebound or guarding Extremities: no clubbing or cyanosis, no edema, 1+ DP/PT pulses Results Results: Laboratory Tests 05/22/1735: Lactic Acid 1.2 05/22/1735: Sodium Pending, Potassium Pending, Chloride Pending, Carbon Dioxide Pending, Anion Gap Pending, BUN Pending, Creatinine Pending, BUN/Creatinine Ratio Pending , CBC w Diff Pending, WBC Pending, RBC Pending, Hgb Pending, Hct Pending, MCV Pending, MCH Pending, RDW Pending, Plt Count Pending, MPV Pending, Gran % Pending, Lymphocytes % Pending, Monocytes % Pending, Eosinophils % Pending, Basophils % Pending, Absolute Granulocytes Pending, Absolute Lymphocytes Pending , Absolute Monocytes Pending, Absolute Eosinophils Pending, Absolute Basophils Pending, PUBS MCHC Pending 05/22/17 0146: Lactic Acid 0.8 05/21/174: Lactic Acid 1.8 05/21/17 2304: Anion Gap 13, Estimated GFR 25 L, BUN/Creatinine Ratio 14.0, Glucose 145 H, Calcium 9.3, Total Bilirubin 1.0, AST 15 L, ALT 21, Alkaline Phosphatase 71, Total Protein 6.8, Albumin 3.9, Globulin 2.9, Albumin/Globulin Ratio 1.3, CBC w Diff NO MAN DIFF REQ, RBC 3.71 L, MCV 88.2, MCH 29.6, RDW 13.2, MPV 7.4, Gran % 93.2 H, Lymphocytes % 2.3 L, Monocytes % 4.5, Eosinophils % 0, Basophils % 0 L, Absolute Granulocytes 13.5 H, Absolute Lymphocytes 0.3 L, Absolute Monocytes 0.6, Absolute Eosinophils 0, Absolute Basophils 0, PUBS MCHC 33.6 05/21/17 2225: Urinalysis LIGHT H, Urine Color YEL, Urine Clarity CLDY H, Urine pH 6.0, Ur Specific [place] 1.015, Urine Protein 100 H, Urine Ketones NEG, Urine Nitrite POS H, Urine Bilirubin NEG, Urine Urobilinogen 0.2, Ur Leukocyte Esterase LARGE H, Ur Microscopic SEDIMENT EXAMINED, Urine RBC 50-75 H, Urine WBC PACKD H, Ur Epithelial Cells FEW, Urine Bacteria PACKD H, Urine Mucus FEW, Urine Hemoglobin LARGE H, Urine Glucose NEG Microbiology 05/21 2341 BLOOD: Blood Culture - RECD 05/21 2304 BLOOD: Blood Culture - RECD 05/21 2225 URINE ROUT: Urine Culture - RECD Assessment/Plan Assessment: Pt is a 76 yo white male non-smoker with history of BPH, nephrolithiasis status post lithotripsy, hypertension, hyperlipidemia, and thoracic aortic aneurism recently hospitalized on 05/18/17 for obstructive uropathy and hyperkalemia who presents with chills, fatigue, abdominal discomfort, and decreased urinary volume. Pt had an elevated WBC of 14.5 and positive UA suggestive of a UTI. Urine and blood cultures are pending. For now we will treat his UTI and await urology consult for possible intervention for his obstructive uropahty secondary to BPH. Plan: #1 complicated UTI secondary to urinary stasis from obstructive uropathy -continue IV fluids -continue IV ceftriaxone -trend lactic acid -urology consult appreciated #2 DAKOTA creatinine is 2.4 (up from 1.1 in Dec 2015) likely secondary to obstruction from underlying BPH -trend BUN/Cr -massey catheter to relieve obstruction -continue IV fluids -avoid nephrotoxic agents #3 history of hypertension and hyperlipidemia -continue amlodipine, atorvastatin, metoprolol #4 history of BPH -cystoscopy scheduled for today -continue finasteride, flomax #5 DVT prophylaxis -continue heparin
[2017-05-22 12:21] VITALS: BP 136/62
--- NOTE | 2017-05-22 16:20 | Operative Report ---
Operative/Inv Procedure Report Surgery Date: 05/22/17 Name of Procedure: Cystoscopy Pre-Operative Diagnosis: Hematuria, BPH with retention Post-Operative Diagnosis: Same Estimated Blood Loss: scant Surgeon/Pain Management Nurse Practitioner: MD [facility] Anesthesia: moderate sedation Drains: 18 Icelandic Brooks Complications: None Operative/Procedure Note Note: The patient was taken to the operative room and placed on the OR table in supine position. Timeout was performed in order to confirm the patient's identity, procedure, anesthesia, antibiotics, as well as any other pertinent information. After adequate anesthesia, and antibiotics, the patient was then placed lithotomy stirrups draped and prepped in the usual surgical fashion. A 22 Icelandic cystoscope sheath with a 30 angle lens was inserted into the urethra and advanced into the bladder without difficulty. The prostate was noted to be approximately 3.5 cm in length, with bilateral lobe hyperplasia. Small middle lobe. The bladder was noted to have the findings as discussed above. The bladder was then hydrodistended 2 with the irrigation fluid at 40 cm above the symphysis pubis. No evidence of tumor, increased petechiae, nor Hunner's ulceration was noted. Both ureteral orifices had clear reflux in their orthotopic position. No terminal bleed with drainage. Bladder capacity was normal. The bladder was then drained and the cystoscope was removed under direct visualization. The patient tolerated procedure well and was taken to recovery room in satisfactory condition.
[2017-05-22 17:07] VITALS: BP 138/64
--- NOTE | 2017-05-22 17:13 | NUR ---
NURSING NOTE; PT ARRIVED BACK TO FLOOR FROM PACU AT 1700, PT A/OX3, ON RA, DENIES SOB, DENIES CP, DENIES ANY PAIN OR DISCOMFORT, VSS, FLUIDS RUNNING PER ORDER ON EMAR, MACKEY DRAINING BY GRAVITY, ORIENTED TO ROOM AND CALL MISTRY, SAFETY MAINTAINED, NEED WITHIN REACH
[2017-05-22 22:30] VITALS: BP 132/60
--- NOTE | 2017-05-23 06:22 | PN- Housestaff ---
FARZANA BERRY,[facility] 05/23/17621: Subjective Follow-up For: bph uti Subjective: Mr Pop was seen and examined this morning. Resting comfortably in bed. Denies any issues overnight. States he feels better and Brooks in place draining well. Tolerated cystoscopy well. Patient endorses a mild headache. 4 out 10 in severity. More prominent on the right frontal side. Patient does not have a history of headaches. Would like to watch a prior to proceeding with any aggressive workup. He denies any fever, chills, nausea, vomiting. Review of Systems Constitutional: Reports: see HPI. Objective Last 24 Hrs of Vital Signs/I&O Vital Signs Date Time Temp Pulse Resp B/P B/P Pulse O2 O2 Flow FiO2 Mean Ox Delivery Rate 05/23 0649 99.0 66 20 140/60 94 Room Air 05/22 2230 99.6 66 18 132/60 96 Room Air 05/22 1707 99.0 68 18 138/64 98 Room Air 05/22 1221 99.1 68 18 136/62 96 Room Air Room Air 05/22 0917 62 128/70 05/22 0916 62 128/70 05/22 0916 62 128/70 Intake & Output 05/23 0800 05/23 0000 05/22 1600 Intake Total 900 400 Output Total 750 2450 Balance 150 -2050 Intake, IV 400 Intake, Oral 900 0 Number 0 Bowel Movements Output, Urine 750 2450 Physical Exam General Appearance: Alert, Oriented X3, Cooperative Skin Temp/Moisture Exam: Warm/Dry Sepsis Skin Exam (color): Normal for Ethnicity Cardiovascular: Regular Rate, Normal S1, Normal S2 Lungs: Clear to Auscultation Abdomen: Normal Bowel Sounds, Soft, No Tenderness, Brooks in place. Draining well. No Hematuria, no clots. Neurological: Normal Gait, Normal Speech, Strength at 5/5 X4 Ext, Normal Tone Extremities: No Edema Vascular: Normal Pulses Current Medications: Current Medications Sig/Elizabeth Start time Last Medication Dose Route Stop Time Status Admin Acetaminophen 650 MG Q6P PRN 05/22 0200 AC PO Acetaminophen 1,000 MG Q6P PRN 05/22 0200 AC 05/23 IV 0507 Amlodipine Besylate 10 MG DAILY 05/22 1000 AC 05/22 PO 0916 Atorvastatin Calcium 20 MG 1700 05/22 1700 AC 05/22 PO 1737 Ceftriaxone Sodium 1,000 MG Q24H 05/22 2330 AC 05/23 IV 0021 Dexamethasone 4 MG .STK-MED ONE 05/22 1343 DC IM 05/22 1344 Fentanyl Citrate 100 MCG .STK-MED ONE 05/22 1342 DC IM 05/22 1343 Finasteride 5 MG DAILY 05/22 1000 AC 05/22 PO 0916 Heparin Sodium 5,000 UNIT Q8 05/22 0600 AC 05/23 (Porcine) SC 0630 Hydromorphone HCl 2 MG .STK-MED ONE 05/22 1342 DC IM 05/22 1343 Ketorolac 30 MG .STK-MED ONE 05/22 1343 DC Tromethamine IM 05/22 1344 Metoprolol Succinate 12.5 MG DAILY 05/22 1000 AC 05/22 PO 0917 Midazolam HCl 2 MG .STK-MED ONE 05/22 1343 DC IM 05/22 1344 Morphine Sulfate 2 MG Q4P PRN 05/22 0200 AC 05/23 IV 0258 Ondansetron HCl 4 MG .STK-MED ONE 05/22 1343 DC IM 05/22 1344 Sodium Chloride 1,000 ML Q10H 05/22 0915 DC 05/22 IV 0920 Sodium Chloride 1,000 ML SEE RATE 05/22 0200 DC 05/22 IV 0310 Tamsulosin HCl 0.4 MG DAILY 05/22 1000 AC 05/22 PO 0916 Assessment/Plan Assessment: Mr. Pop is 76-year-old male with past medical history significant for BPH, HTN, HLD, thoracic aortic aneurysm who was recently discharged from [facility] on 05/18/17 after he was treated for DAKOTA, hyperkalemia and obstructive uropathy (2/2 to BPH). Patient presented back to the ED on 05/22/2017 with chief complaint of chills. Patient sates that he was last seen at the office of Dr Romero on Friday05/19/2017, and over the last two days prior to admission he noticed chills, abdominal fullness and fatigued. Prior to coming in he had seen Dr Romero and after being found to have a temperature of 103 deg F, he was instructed to come to the ED. Vital signs at the time of admission: 99.9, pulse 105, blood pressure 186/75, respiratory 28 saturating 95% on room air Labs WBC 14.5, H&H 11/32.8, platelet 152, sodium 137, potassium 4.6, BUN/creatinine 35/2.5, glucose 145, lactic acid 1.8, UA positive nitrate, leukocyte esterase, packed WBC He is admitted in the general medcine service. Problem list #Sepsis of urologic origin #UTI #Acute kidney injury #BPH #Hypertension, hyperlipidemia Plan -Continue ceftriaxone IV. May transition to oral antibiotics once C & S are back. -Urine culture: E Coli. -Continue Brooks Cather. -Continue to monitor I's and O's - Fluids can be discontinued, Patient tolerating PO intake well -Tylenol PRN for Headache. -IV Zofran for Nausea. -Continue home medication amlodipine 10 mg, atorvastatin 20 mg, finasteride 5 mg , metoprolol 12.5 mg, Flomax 0.4 mg -Code full -DVT prophylaxis heparin subcutaneous -Diet heart healthy Problem List: 1. Bladder outlet obstruction 2. Acute renal failure 3. Acute hyperkalemia 4. UTI (urinary tract infection) 5. Sepsis 6. Renal failure Pain Ratin Pain Location: headache Pain Goal: Remain pain free Pain Plan: Tylenol PRN Tomorrow's Labs & Rationales: No Labs ROSINA GARY MD 05/23/17 1124: Attending MD Review Statement Attending Statement Attending MD Statement: examined this patient, discuss w/resident/PA/THREAD SEPARATOR, agreed w/resident/PA/THREAD SEPARATOR, reviewed EMR data (avail) Attending Assessment/Plan: 76M PMH HTN, HLD, thoracic AA, nephrolithiasis s/p lithotripsy, BPH s/p biopsy ( benign), was discharged on May 16 after being treated for DAKOTA, hyperkalemia and obstructive uropathy 2/2 BPH for which Brooks was placed c/b post obstructive diuresis, after urology follow up developed fever, chills, and dysuria, underwent cystoscopy on 05/22 that was unremarkable, now growing GNR in urine. Patient feels a bit better today. He was nauseous this morning and had a headache, and his appetite is poor, but overall he feels better. Afebrile overnight, stable vitals, labs reviewed, exam benign. 1. Sepsis (resolved) 2. UTI 3. DAKOTA 4. Obstructive uropathy (resolved) Plan - Continue on general medicine - Continue Ceftriaxone - Follow cultures - Follow urology recommendations - Continue home medications - Zofran PRN for nausea - Nutrition consult - DVT PPx
[2017-05-23 06:49] VITALS: BP 140/60
--- NOTE | 2017-05-23 08:34 | PN- Student ---
Subjective Subjective: Pt reports feeling better this morning except for a new onset headache. He went for a cystoscopy yesterday to investigate his urinary retention. The bladder was found to be distended but otherwise normal. After drainage during the procedure, the pt reports feeling well. He no longer has complaints of abdominal discomfort or fullness. Denies lightheadedness, confusion, fever, abdominal pain, or dysuria. Objective Objective: Intake & Output 05/23 0800 05/23 0000 05/22 1600 05/22 0800 05/22 0000 Intake Total 900 400 640 0 Output Total [phone] 1999 Balance -1450 150 -2050 -1360 0 Intake, IV 400 400 Intake, Oral 900 0 240 0 Number 0 Bowel Movements Output, Urine [id number] 1999 Patient 206 lb 210 lb Weight Weight Reported by Patient Measurement Method Current Medications Sig/Elizabeth Start time Last Medication Dose Route Stop Time Status Admin Acetaminophen 650 MG Q6P PRN 05/22 0200 AC PO Acetaminophen 1,000 MG Q6P PRN 05/22 0200 AC 05/23 IV 0507 Amlodipine Besylate 10 MG DAILY 05/22 1000 AC 05/22 PO 0916 Atorvastatin Calcium 20 MG 1700 05/22 1700 AC 05/22 PO 1737 Ceftriaxone Sodium 1,000 MG Q24H 05/22 2330 AC 05/23 IV 0021 Finasteride 5 MG DAILY 05/22 1000 AC 05/22 PO 0916 Heparin Sodium 5,000 UNIT Q8 05/22 0600 AC 05/23 (Porcine) SC 0630 Metoprolol Succinate 12.5 MG DAILY 05/22 1000 AC 05/22 PO 0917 Morphine Sulfate 2 MG Q4P PRN 05/22 0200 AC 05/23 IV 0258 Tamsulosin HCl 0.4 MG DAILY 05/22 1000 AC 05/22 PO 0916 Vital Signs Date Time Temp Pulse Resp B/P Pulse O2 O2 Flow Ox Delivery Rate 05/23 0649 99.0 66 20 140/60 94 Room Air 05/22 2230 99.6 66 18 132/60 96 Room Air 05/22 1707 99.0 68 18 138/64 98 Room Air 05/22 1221 99.1 68 18 136/62 96 Room Air Room Air Physical Exam General: well-appearing, lying comfortably in bed, NAD Head: NCAT Neck: supple, no carotid bruit Cardio: normal s1s2, no mrg, rrr Pulm: cta bl, good air movement GI: no ttp, no reoubnd, no guarding Results Results: Laboratory Tests 05/23/17 0735: CBC w Diff NO MAN DIFF REQ, RBC 3.23 L, MCV 87.3, MCH 29.5, RDW 12.9, MPV 8.2, Gran % 89.0 H, Lymphocytes % 3.2 L, Monocytes % 6.6, Eosinophils % 1.1, Basophils % 0.1, Absolute Granulocytes 8.4 H, Absolute Lymphocytes 0.3 L, Absolute Monocytes 0.6, Absolute Eosinophils 0.1, Absolute Basophils 0, PUBS MCHC 33.8 05/23/17 0731: Anion Gap 8, Estimated GFR 31 L, BUN/Creatinine Ratio 16.2 05/22/17 0635: Lactic Acid 1.2 05/22/1735: Anion Gap 10, Estimated GFR 26 L, BUN/Creatinine Ratio 14.6, CBC w Diff MAN DIFF ORDERED, RBC 3.39 L, MCV 87.7, MCH 30.0, RDW 13.2, MPV 8.2, Gran % 90.3 H , Lymphocytes % 2.5 L, Monocytes % 7.2, Eosinophils % 0, Basophils % 0 L, Absolute Granulocytes 15.9 H, Absolute Lymphocytes 0.4 L, Absolute Monocytes 1.3 H, Absolute Eosinophils 0, Absolute Basophils 0, Platelet Estimate VERIFIED BY SMEAR, Normocytic RBCs VERIFIED, Normochromic RBCs VERIFIED, PUBS MCHC 34.2 05/22/17 0146: Lactic Acid 0.8 05/21/17 2304: Lactic Acid 1.8 05/21/17 2304: Anion Gap 13, Estimated GFR 25 L, BUN/Creatinine Ratio 14.0, Glucose 145 H, Calcium 9.3, Total Bilirubin 1.0, AST 15 L, ALT 21, Alkaline Phosphatase 71, Total Protein 6.8, Albumin 3.9, Globulin 2.9, Albumin/Globulin Ratio 1.3, CBC w Diff NO MAN DIFF REQ, RBC 3.71 L, MCV 88.2, MCH 29.6, RDW 13.2, MPV 7.4, Gran % 93.2 H, Lymphocytes % 2.3 L, Monocytes % 4.5, Eosinophils % 0, Basophils % 0 L, Absolute Granulocytes 13.5 H, Absolute Lymphocytes 0.3 L, Absolute Monocytes 0.6, Absolute Eosinophils 0, Absolute Basophils 0, PUBS MCHC 33.6 05/21/175: Urinalysis LIGHT H, Urine Color YEL, Urine Clarity CLDY H, Urine pH 6.0, Ur Specific [place] 1.015, Urine Protein 100 H, Urine Ketones NEG, Urine Nitrite POS H, Urine Bilirubin NEG, Urine Urobilinogen 0.2, Ur Leukocyte Esterase LARGE H, Ur Microscopic SEDIMENT EXAMINED, Urine RBC 50-75 H, Urine WBC PACKD H, Ur Epithelial Cells FEW, Urine Bacteria PACKD H, Urine Mucus FEW, Urine Hemoglobin LARGE H, Urine Glucose NEG Microbiology 05/21 2225 URINE ROUT: Urine Culture - COMP ESCHERICHIA COLI Assessment/Plan Assessment: Pt is a 76 yo white male non-smoker with history of BPH, nephrolithiasis status post lithotripsy, hypertension, hyperlipidemia, and thoracic aortic aneurism recently discharged from [facility] on 05/18/17 for obstructive uropathy and hyperkalemia who presents with chills, fatigue, abdominal discomfort, and decreased urinary volume. Urine culture grew e coli so we will continue to treat with ceftriaxone. His cystoscopy did not reveal any abnormalities other than bladder distension. Drainage from the procedure seemed to have relieved some of the pt's symptoms. He is currently hemodynamically stable. Plan: #1 complicated UTI Secondary to urinary stasis from obstructive uropathy. Gram negative rods seen on urine culture. -continue ceftriaxone -continue IV fluids -trend lactic acid #2 [place] creatinine is 2.4 (up from 1.1 in Dec 2015) likely secondary to obstruction from underlying BPH -trend BUN/Cr -continue IV fluids -massey catheter -avoid nephrotoxic agents #3 headache -Tylenol prn #4 history of hypertension and hyperlipidemia -continue amlodipine, atorvastatin, metoprolol #5 history of BPH -continue finasteride, flomax -pt will follow up with a TURP procedure at [facility] #6 DVT prophylaxis -continue heparin
[2017-05-23 08:44] LABS: ABSOLUTE BASOPHIL COUNT 0 /CUMM (0.0-0.2); ABSOLUTE EOSINOPHIL COUNT 0.1 /CUMM (0.0-0.7); ABSOLUTE GRANULOCYTE CT 8.4 /CUMM (1.4-6.5); ABSOLUTE LYMPH COUNT 0.3 /CUMM (1.2-3.4); ABSOLUTE MONOCYTE COUNT 0.6 /CUMM (0.10-0.60); BASOPHIL % 0.1 % (0.0-2.0); EOSINOPHIL % 1.1 % (0-5); HEMATOCRIT 28.2 % (42-52); MEAN CORPUSCULAR HGB 29.5 PG (27.0-31.0); MEAN CORPUSCULAR HGB CONC 33.8 G/DL (33.0-37.0); MEAN CORPUSCULAR VOLUME 87.3 FL (80.0-94.0); MEAN PLATELET VOLUME 8.2 FL (7.4-10.4); RBC DISTRIBUTION WIDTH 12.9 % (11.5-14.5); RED BLOOD CELL CT 3.23 /CUMM (4.70-6.10); WHITE BLOOD CELL COUNT 9.4 /CUMM (4.8-10.8)
[2017-05-23 09:53] LABS: PLATELET COUNT 123 /CUMM (130-400)
[2017-05-23] MEDS ORDERED: AUGMENTIN 875-1 EACH PO ×3 (14:10→16:25)
[2017-05-23 14:47] VITALS: BP 138/66
== END 2017-05-23 16:56 | DRG 872 ==
LOC: ERH 22:11 → 2NB 05-22 00:48 → ERHI 05-22 00:48 → 2NB 05-22 02:26 → ENTRNSPT 05-22 16:02 → CMPTRNSPT 05-22 17:06 → ENPENDDIS 05-23 14:25 → 2NB 05-23 16:56
PROVIDERS: Pediatrics; Student in an Organized Health Care Education/Training Program; ADMIT Student in an Organized Health Care Education/Training Program
PROC: 0TJB8ZZ Inspection of Bladder, Via Natural or Artificial Opening Endoscopic (ICD-10-PCS; principal; 2017-05-22)
DX: A41.9 Sepsis, unspecified organism (principal); N17.9 Acute kidney failure, unspecified; N39.0 Urinary tract infection, site not specified; R31.9 Hematuria, unspecified; N40.1 Benign prostatic hyperplasia with lower urinary tract symptoms; R33.8 Other retention of urine
CPT/HCPCS: 2NBSP; 36415; 81001; 82436; 87040; 87086; 93005; 93010; 96374; 99291; J0131; J0696; J1100; J1644; J1885; J2405

== ENCOUNTER 2017-06-11 09:54 | Emergency (ER) | payer OTHER ==
[~2017-06-11] VITALS: Ht 190.5 cm; Wt 89.4 kg
[~2017-06-11 09:54] MED LIST changes: +AUGMENTIN 875-1 EACH PO; +PAIN RELIEVER500 MG PO
--- NOTE | 2017-06-11 09:55 | ED SKIN/ALLERGY COMPLAINT ---
History of Present Illness General Chief Complaint: Suture Removal/Wound Recheck Stated Complaint: SUTURE REMOVAL Source: patient Exam Limitations: no limitations Vital Signs & Intake/Output Vital Signs & Intake/Output Vital Signs Date Time Temp Pulse Resp B/P B/P Pulse O2 O2 Flow FiO2 Mean Ox Delivery Rate 06/11 0956 97.7 90 20 180/78 98 Room Air Allergies Coded Allergies: NO KNOWN ALLERGIES (05/16/17) Reconcile Medications Acetaminophen (Pain Reliever) 500 MG CAPSULE 2 CAP PO PRN PAIN (Reported) Amlodipine Besylate (Norvasc) 10 MG TABLET 1 TAB PO DAILY HTN (Reported) Atorvastatin Calcium 20 MG TABLET 1 TAB PO DAILY CHOLESTROL (Reported) Finasteride 5 MG TABLET 1 TAB PO DAILY PROSTATE Metoprolol Succ XL (Toprol XL) 25 MG TAB 0.5 TAB PO DAILY HEART RATE CONTROL Tamsulosin HCl (Flomax) 0.4 MG CAP.ER.24H 1 TAB PO DAILY PROSTATE Triage Nurses Notes Reviewed? yes Onset: Abrupt Duration: better Timing: recent history Severity: mild Severity Numbers: 1 HPI: Patient is a 76-year-old male who presents emergency room with suture removal request and which on May, 8 days ago patient was in [place] where he had a syncopal episode due to "medications" where he was evaluated in a hospital near [place], [place] where he had lacerations suffered to the right side of his head and to his right hand where sutures where placed then. Denies any occurance of fracture Patient was safely discharged thereafter and patient has been applying bacitracin to the area once a day. Patient denies any fever chills pain discharge or signs of infection to the wound sites. (MELISA COOPER) Past History Travel History Traveled to [place] past 21 day No Medical History Any Pertinent Medical History? see below for history Neurological: NONE EENT: NONE Cardiovascular: aortic aneurysm, hypertension, hyperlipidemia Respiratory: NONE Gastrointestinal: NONE Hepatic: NONE Renal: benign prost hyperplasia, nephrolithiasis Musculoskeletal: NONE Psychiatric: NONE Endocrine: NONE Blood Disorders: NONE Cancer(s): NONE RECEPTION MANAGER/Reproductive: BPH, kidney stone 15 years ago History of MRSA: No History of VRE: No History of CDIFF: No Tetanus Vaccine: 06/06/12 Surgical History Surgical History: non-contributory Psychosocial History Who do you live with Patient/Self What is your primary language Citizen Of [place] Family History Family History, If Any: FATHER FH: heart disease Hx Contributory? No (MELISA COOPER) Review of Systems Review of Systems Constitutional: Reports: no symptoms. EENTM: Reports: no symptoms. Respiratory: Reports: no symptoms. Cardiovascular: Reports: no symptoms. GI: Reports: no symptoms. Genitourinary: Reports: no symptoms. Musculoskeletal: Reports: no symptoms. Skin: Reports: see HPI. Neurological/Psychological: Reports: no symptoms. Hematologic/Endocrine: Reports: no symptoms. Immunologic/Allergic: Reports: no symptoms. All Other Systems: Reviewed and Negative (MELISA COOPER) Physical Exam Physical Exam General Appearance: no apparent distress, alert, comfortable Head: lacerations Eyes: Bilateral: normal appearance. Ears, Nose, Throat: hearing grossly normal Neck: normal inspection Respiratory: no respiratory distress Extremities: normal range of motion, no edema Neurologic/Psych: no motor/sensory deficits Skin: intact, normal color, warm/dry Diagram Head: 1) noted 1 cm well healing laceration with #3 intact sutures, no erythema no warmth no tenderness 2) noted 3mm well healing laceration with #1 intact sutures, no erythema no warmth no tenderness Hands, Dorsum: 1) noted 1.5 cm well healing irregular shaped laceration with #7 intact sutures, no erythema no warmth no tenderness (MELISA COOPER) Progress Differential Diagnosis: fb, fracture, sepsis, infection Plan of Care: The laceration site and suture repair looks well-healing no signs of infection In total #10 sutures were removed without complications bacitracin was applied. (MELISA COOPER) Departure Departure Disposition: HOME OR SELF CARE Condition: Stable Clinical Impression Primary Impression: Visit for suture removal Secondary Impressions: Visit for wound check Referrals: COLLINS BERRY,ASIA Morse (PCP/Family) Additional Instructions: As discussed after tomorrow, discontinue applying bacitracin to the area. If you note signs of infection redness, pain, swelling, discharge return to emergency room. On Friday please discontinue the use of the nena taping to your right fingers. Keep area dry and clean YOU can Departure Forms: Customer Survey General Discharge Information (MELISA COOPER) PA/SAND CONDITIONER Co-Sign Statement Statement: ED Attending supervision documentation- x I saw and evaluated the patient. I have also reviewed all the pertinent lab results and diagnostic results. I agree with the findings and the plan of care as documented in the PA's/SAND CONDITIONER's documentation. [] I have reviewed the ED Record and agree with the PA's/SAND CONDITIONER's documentation. [] Additions or exceptions (if any) to the PAs/SAND CONDITIONER's note and plan are summarized below: [] (KATHARINE BERRY,PERLA)
[2017-06-11 09:56] VITALS: BP 180/78
== END 2017-06-11 10:09 ==
LOC: ERH 09:54
DX: S61.411A Laceration without foreign body of right hand, initial encounter (principal); X58.XXXA Exposure to other specified factors, initial encounter; Y92.9 Unspecified place or not applicable; Y93.9 Activity, unspecified
CPT/HCPCS: 99281

== ENCOUNTER → 2017-06-19 | Day surgery (SDC) | payer OTHER ==
[~2017-06-19] VITALS: Ht 190.5 cm; Wt 89.4 kg
--- NOTE | 2017-06-19 16:34 | Operative Report ---
Operative/Inv Procedure Report Surgery Date: 06/19/17 Name of Procedure: laser turp Pre-Operative Diagnosis: bph retention Post-Operative Diagnosis: same Estimated Blood Loss: less than 50ml Surgeon/Mechanical Assembly Technician: RADHA WASHBURN MD Anesthesia: moderate sedation Drains: 20fr massey Specimens: prostate chip Complications: none Operative/Procedure Note Note: The patient was taken to the operating room and placed on the OR table in supine position. Timeout was performed, with the patient awake, in order to confirm the patient's correct identity, procedure, laterality, antibiotics, and other pertinent danii-operative information. After adequate anesthesia and antibiotics , the indwelling massey was removed. The patient was then draped and prepped in the usual surgical fashion. He was positioned comfortably and securely in Yellow-Fin stirrups. A lubricated 22 Jordanian cystoscope sheath with 30 angle lens was inserted under direct visualization. On entering the prostatic urethra, the prostate gland was noted to have significantly obstructing bilateral prostate lobes, and a small- moderate sized middle lobe. The veru-montanum was noted to be normal. Upon entering the bladder, through a narrowed bladder neck, the bladder was noted to be trabeculated with multiple cellules. There was no evidence of bladder tumor, nor stones. Both ureteral orifices were noted to be in their orthotopic position with clear reflux bilaterally. The bladder was drained, via the cystoscope, and the cystoscope was removed. A 26 Jordanian laser resectoscope sheath was then inserted into the penis, with a 30 angle lens, under direct visualization. Maintaining the cystoscope at the level of the veru-montanum, the diode laser fiber was then inserted through the scope and visualized directly in front of the laser resectoscope sheath, in proper orientation. Photo-vaporization of the left lobe was performed in order to open a wide prostatic urethral channel on the left side. The resection proceeded from the 2-6 o'clock position, obliterating the glandular tissue, but not reaching or penetrating the capsule. Laser TURP was performed in a sweeping manner in order to get good vaporization of the prostate lobe, and good hemostasis. The resection of the left apical lobe was haulted at the level of the vera montanum, so as to preserve the external sphincter. Once the left lobe was resected in a satisfactory manner, the right lobe of the prostate was then photo vaporized in the same manner from the 10:00 to the 6 o'clock position. Once again the resection of the right lobe was haulted at the level of the veru- montanum. The middle lobe was then photo vaporized, with the diode laser, in order to further open the prostatic channel adequately. Once hemostasis and an open channel was confirmed, the resectoscope was then reinserted into the bladder. The bladder was again thoroughly and systematically surveyed in order to confirm no evidence of injury to the bladder or orifices. The bladder was copiously irrigated in order to us to ensure no foreign body was in the bladder. The bladder was left full and the resectoscope was then removed under direct visualization again confirming good hemostasis. The patient was noted to have mild spontaneous drainage upon removal of the resectoscope. All sponge, needle, and instrument count were correct at the end of the case. A 20 Jordanian Massey catheter was then inserted and drained clear fluid prior to inflating the 10 mL balloon. The Massey catheter was attached to a drainage bag. The patient tolerated the procedure well and was taken to the recovery room in satisfactory condition, with Rx for antibiotics, and pain-meds. Discharge Disposition: Same Day Admissions CC: RADHA WASHBURN MD
== END ==
LOC: STS 06-17 04:14
DX: N40.1 Benign prostatic hyperplasia with lower urinary tract symptoms (principal); R33.8 Other retention of urine; N32.89 Other specified disorders of bladder; I10 Essential (primary) hypertension
CPT/HCPCS: J0131; J0690; J2250